=== PATIENT | female | born 1940 | race Caucasian/White ===

== ENCOUNTER 2018-10-11 22:54 | Inpatient (IN) | payer MEDICARE ==
--- NOTE | 2018-10-11 23:35 | RAD ---
Exam: Chest one view HISTORY:Pain, fall Comparison: None FINDINGS: Lungs: No masses or consolidation. Hyperinflated. Vascular calcification. Cardiac silhouette: Normal size Pulmonary vessels: Normal Pleural Spaces: Clear Pneumothorax: None Osseous abnormalities: None of acuity. IMPRESSION: COPD. No focal consolidation.
[2018-10-11 23:40] LABS: Bacteria/HPF None Seen HPF (None Seen); Bilirubin Negative (Negative); Blood, Urine Trace (Negative); Clarity Clear (Clear); Glucose, Urine (Dipstick) Normal (Negative); Leukocyte 25 Leu/uL (Negative); Nitrite Negative (Negative); Protein, Urine (Dipstick) Negative (Neg-Trace); Squamous Epithelial 0-3 HPF (0-3); Urobilinogen Normal mg/dL (Less than 2); WBC/HPF 0-3 HPF (0-3)
[2018-10-12 00:04] LABS: #Basophils 0.1 thou/uL (0.0-0.2); #Eosinphils 0.2 thou/uL (0.0-0.7); #Monocytes 1.1 thou/uL (0.11-0.59); #Neutrophils 12.2 thou/uL (1.40-6.50); %Basophils 0.4 % (0.0-1.0); %Eosinophils 1.6 % (0.0-10.0); %Lymphocytes 12.9 % (21.0-51.0); %Monocytes 7.1 % (0.0-10.0); Hemoglobin 13.9 g/dL (12.0-16.0); Mean Corpuscular HGB CONC 32.5 g/dL (32.0-36.0); Mean Corpuscular Hemoglobin 30.8 pg (27.0-31.0); Mean Corpuscular Volume 94.7 fL (78.0-98.0); Mean Platelet Volume 8.7 fL (7.4-10.4); Platelet Count 320 thou/uL (130-400); RBC Distribution Width 11.9 % (11.5-14.5); White Blood Cell (WBC) Count 15.7 thou/uL (4.8-10.8)
[2018-10-12 00:07] LABS: PTT 30.8 SEC (22.9-36.1); Prothrombin Time 13.3 SEC (12.0-14.7)
[2018-10-12 00:10] LABS: ALT (SGPT) 22 U/L (8-55); AST (SGOT) 28 U/L (5-34); Albumin 4.1 g/dL (3.4-4.8); Alkaline Phosphatase 56 U/L (40-150); Anion Gap 14 mmol/L (10-20); BUN (Urea Nitrogen) 20 mg/dL (9.8-20.1); Bilirubin, Total 0.6 mg/dL (0.2-1.2); Calc. Creatinine Clearance 0 mL/min (70-130); Calcium 9.9 mg/dL (7.8-10.44); Carbon Dioxide 28 mmol/L (23-31); Chloride 102 mmol/L (98-107); Estimated GFR-MDRD 68; Globulin 2.5 g/dL (2.4-3.5); Glucose 185 mg/dL (83-110); Potassium 4.5 mmol/L (3.5-5.1); Protein, Total 6.6 g/dL (6.0-8.3); Sodium 139 mmol/L (136-145)
[2018-10-12] MEDS ORDERED: hydrALAZINE 20 MG/ML VIAL ONE (00:18)
[2018-10-12] MEDS ORDERED: Acetaminophen 1,000 MG in Premix Bag 1 BAG IVPB SCH (01:15)
[2018-10-12] MEDS ORDERED: niCARdipine 20MG In NaCl 20 MG/200 ML BAG ONE (01:52)
[2018-10-12] MEDS ORDERED: Rocuronium Bromide 10 MG/ML (10ML VIAL) ONE ×2 (01:56→16:22)
[2018-10-12] MEDS ORDERED: Dextrose 5% in Water 1,000 ML IV PRN (01:59)
[2018-10-12] MEDS ORDERED: Ondansetron PF 4 MG/2 ML Vial IVP PRN (01:59)
[2018-10-12] MEDS ORDERED: Dextrose 50% Abboject 50 ML SYRINGE SLOW IVP PRN (01:59)
[2018-10-12] MEDS ORDERED: fentaNYL Citrate/PF 2,000 MCG in Sodium Chloride 0.9% 60 ML IV SCH (02:05)
[2018-10-12] MEDS ORDERED: Sodium Chloride 0.9% 10 ML ONE (02:07)
[2018-10-12] MEDS ORDERED: Thrombin 5000 UNITS/5 ML VIAL ONE (02:07)
[2018-10-12] MEDS ORDERED: Bacitracin Zinc Ointment 30 gm TUBE ONE (02:07)
[2018-10-12] MEDS ORDERED: Fentanyl 250 MCG/5 ML VIAL ONE (02:10)
[2018-10-12] MEDS ORDERED: Phenylephrine HCL 10 MG/ML VIAL ONE (02:10)
[2018-10-12] MEDS ORDERED: Rocuronium Bromide 50 MG/5 ML VIAL ONE (02:10)
[2018-10-12] MEDS ORDERED: Fentanyl 100 MCG/2 ML VIAL ONE (02:12)
[2018-10-12] MEDS ORDERED: Ventilator Sedation Protocol 1 EACH FS ONE (02:18)
[2018-10-12 02:25] LABS: Analyzer IN Cardio ER; Base Excess (BEa) 1.2 mEq/L (-2.0 to +3.0); Calcium, Ionized 1.15 mmol/L (1.12-1.30); Carboxyhemoglobin (COHb) 0.2 gm% (0.0-3.0); Potassium - ABG Lab 3.53 mmol/L (3.70-5.30); pH, Arterial 7.48 (7.35-7.45)
[2018-10-12] MEDS ORDERED: Fentanyl BOLUS 250 ML IVPB PRN (02:25)
[2018-10-12] MEDS ORDERED: Morphine 2 MG/ML SYRINGE SLOW IVP PRN (02:25)
[2018-10-12] MEDS ORDERED: DISCONTINUE PREVIOUS NARCOTIC PAIN MEDICATIONS AND BENZODIAZEPINES FS SCH (02:25)
[2018-10-12] MEDS ORDERED: Propofol BOLUS 1,000 MG/100 ML VIAL IV PRN (02:25)
[2018-10-12] MEDS ORDERED: Lorazepam 2 MG/ML VIAL SLOW IVP PRN (02:25)
[2018-10-12] MEDS ORDERED: Propofol 1,000 MG/100 ML VIAL IV PRN (02:25)
[2018-10-12 02:30] LABS: O2 Tension (PaO2) 565.7 mmHg (> 70.0); Puncture Site RRA
[2018-10-12 02:36] LABS: #Eosinphils 0.1 thou/uL (0.0-0.7); #Lymphocytes 1.7 thou/uL (1.20-3.40); #Monocytes 1.1 thou/uL (0.11-0.59); #Neutrophils 15.6 thou/uL (1.40-6.50); %Basophils 0.1 % (0.0-1.0); %Eosinophils 0.4 % (0.0-10.0); %Lymphocytes 9.1 % (21.0-51.0); %Neutrophils 84.4 % (42.0-75.0); Hemoglobin 13.6 g/dL (12.0-16.0); Mean Corpuscular HGB CONC 31.8 g/dL (32.0-36.0); Mean Corpuscular Volume 94.2 fL (78.0-98.0); Mean Platelet Volume 8.2 fL (7.4-10.4); Platelet Count 302 thou/uL (130-400); Red Blood Cell (RBC) Count 4.54 mill/uL (4.20-5.40); White Blood Cell (WBC) Count 18.4 thou/uL (4.8-10.8)
[2018-10-12 02:44] LABS: PTT 27.6 SEC (22.9-36.1); Prothrombin Time 13.6 SEC (12.0-14.7)
[2018-10-12 02:57] LABS: ALT (SGPT) 22 U/L (8-55); AST (SGOT) 30 U/L (5-34); Albumin 3.9 g/dL (3.4-4.8); Alkaline Phosphatase 49 U/L (40-150); Anion Gap 13 mmol/L (10-20); BUN (Urea Nitrogen) 18 mg/dL (9.8-20.1); Bilirubin, Total 0.7 mg/dL (0.2-1.2); Calc. Creatinine Clearance 0 mL/min (70-130); Calcium 8.8 mg/dL (7.8-10.44); Carbon Dioxide 24 mmol/L (23-31); Chloride 105 mmol/L (98-107); Estimated GFR-MDRD 81; Globulin 2.6 g/dL (2.4-3.5); Glucose 204 mg/dL (83-110); Magnesium 2.1 mg/dL (1.6-2.6); Phosphorus 2.4 mg/dL (2.3-4.7); Potassium 3.2 mmol/L (3.5-5.1); Protein, Total 6.5 g/dL (6.0-8.3); Sodium 139 mmol/L (136-145)
[2018-10-12 03:29] LABS: Amphetamine Not Detected (NotDetected); Barbiturates Screen Not Detected (NotDetected); Benzodiazepine Screen Not Detected (NotDetected); Cocaine Metabolite Screen Not Detected (NotDetected); Medtox Control Line Valid? VALID (VALID); Medtox Reader # READER 4; Methadone Not Detected (NotDetected); Methamphetamine Not Detected (NotDetected); Opiate Screen Not Detected (NotDetected); Oxycodone Screen Not Detected (NotDetected); Phencyclidine (PCP) Not Detected (NotDetected); THC/Cannabinoid Screen Not Detected (NotDetected); Tricyclic Screen Not Detected (NotDetected)
[2018-10-12 04:27] LABS: Actual Bicarbonate (HCO3a) 22.7 mEq/L (22-28); Base Excess (BEa) -0.5 mEq/L (-2.0 to +3.0); CO2 Tension 33.2 mmHg (35.0-45.0); Calcium, Ionized 1.09 mmol/L (1.12-1.30); Hemoglobin (Hb) 14.5 g/dL (12.0-16.0); O2 Tension (PaO2) 137.9 mmHg (> 70.0); Potassium - ABG Lab 3.58 mmol/L (3.70-5.30); pH, Arterial 7.45 (7.35-7.45)
[2018-10-12 04:30] LABS: Puncture Site ALINE
[2018-10-12 04:55] LABS: Prothrombin Time 13.3 SEC (12.0-14.7)
[2018-10-12] MEDS: Sodium Chloride 0.9% 1,000 ML IV SCH ×3 (04:59→18:17)
[2018-10-12] MEDS ORDERED: Potassium Phosphate 15 MMOL in Sodium Chloride 0.9% 250 ML 250 ML IVPB SCH (05:00)
--- NOTE | 2018-10-12 05:02 | PRG ---
DATE OF SERVICE: 10/12/2018 I agree with Susanna Thompson's evaluation on 10/12/2018. The patient is a 78-year-old woman with unknown past medical history, who had either a fall getting into the car or syncopal event according to her . He is a relatively poor historian. In any event on arrival to the hospital, she was interactive and oriented but progressively declined to the point, where she had a dense left hemiparesis and was more obtunded. CT scan initially revealed a small right frontal intracerebral hemorrhage. This has progressed to become a much more extensive right frontal intracranial hemorrhage. The patient has extensive facial ecchymoses and swelling. The patient's INR is 1.0. Platelets are normal. IMPRESSION AND PLAN: We will need to take the patient emergently to Surgery for evacuation of the right intracerebral hematoma. Job ID: [id number]
[2018-10-12 05:17] LABS: ALT (SGPT) 24 U/L (8-55); AST (SGOT) 33 U/L (5-34); Albumin 4.2 g/dL (3.4-4.8); Alkaline Phosphatase 50 U/L (40-150); Anion Gap 15 mmol/L (10-20); BUN (Urea Nitrogen) 18 mg/dL (9.8-20.1); Bilirubin, Total 1.2 mg/dL (0.2-1.2); Calc. Creatinine Clearance 72 mL/min (70-130); Calcium 9.2 mg/dL (7.8-10.44); Carbon Dioxide 23 mmol/L (23-31); Chloride 103 mmol/L (98-107); Estimated GFR-MDRD 77; Globulin 2.8 g/dL (2.4-3.5); Glucose 265 mg/dL (83-110); Potassium 3.5 mmol/L (3.5-5.1); Sodium 137 mmol/L (136-145)
--- NOTE | 2018-10-12 05:21 | OP ---
DATE OF PROCEDURE: 10/12/2018 OIL DISTRIBUTOR: Jay. PROCEDURE: Right frontal craniotomy, evacuation of hematoma. DESCRIPTION OF PROCEDURE: The patient was brought to the operating room and intubated. She was positioned supine with the head in modest extension on a gel-filled donut. An incision was made in the right frontal region and a standard curvilinear frontal incision was made in the scalp and reflected anteriorly. A standard square frontal craniotomy was performed and the dura was opened. A corticotomy was made, and we immediately entered the hematoma cavity. Throughout the case, and in the hematoma cavity, the bleeding was quite copious and watery and the clot was not very solid. This suggested an underlying coagulopathy. We evacuated extensive hematoma completely decompressing the brain. Bleeding on the brain surfaces was controlled with bipolar coagulation. No discrete site of bleeding that may have caused the hematoma was identified. Next, the skull was replaced with titanium microplates and screws and the wound was closed in anatomic layers. Job ID: [id number]
[2018-10-12] MEDS: niCARdipine 25 MG in Sodium Chloride 0.9% 250 ML 240 ML IVPB SCH ×3 (05:22→19:57)
[2018-10-12] MEDS: HumaLOG 300 UNITS/3 ML VIAL SC PRN ×2 (05:22→09:45)
--- NOTE | 2018-10-12 05:49 | CON ---
DATE OF CONSULTATION: HISTORY OF PRESENT ILLNESS: The patient is a 78-year-old female, who presented to the emergency department per EMS after syncope versus fall and acute head injury. reports that they were returning home from dinner when the patient was getting out of the car. He did not witness the event, but he heard a thud and walked around to the other side of the vehicle and found the patient unconscious on the ground. He contacted EMS, who presented on arrival and transferred the patient to [facility] ER for further evaluation. On arrival, the patient was A and O x4 and only had left upper extremity weakness. Her initial CT head showed a small right frontal intracranial hemorrhage. During her ER course, she began to decline drastically, became more obtunded and increasing weakness noticed on the left side. A repeat CT head was done, which showed a large right frontal intracranial hemorrhage with surrounding mass effect and midline shift. I was in the department, upon return of the 2nd scan, Dr. Samson and I discussed the case and felt that the patient would require emergent right-sided craniotomy for hematoma evacuation. I discussed this with the patient's spouse as well as the son over the phone. The patient was transferred to the OR for further management. PAST MEDICAL HISTORY: Hypertension, hyperlipidemia, diverticulitis, diabetes. PAST SURGICAL HISTORY: Oophorectomy, bladder suspension, hysterectomy, right knee surgery, tonsillectomy. SOCIAL HISTORY: The patient lives at home. She does not smoke, drink, or use any drugs. ALLERGIES: SHE IS ALLERGIC TO PENICILLIN. CURRENT MEDICATIONS: 1. Aspirin 81 mg tablet. 2. Metformin 500 mg tablet. 3. Losartan/hydrochlorothiazide 100 mg/25 mg tablet. 4. Duloxetine 60 mg tablet. 5. Simvastatin 20 mg tablet. 6. The patient's believes she may take Coumadin, but he is unsure of what blood thinners she is on. REVIEW OF SYSTEMS: Unobtainable secondary to the patient's condition. PHYSICAL EXAMINATION: CONSTITUTIONAL: The patient in moderate distress. GCS is still 10 on arrival. The patient opens her eyes to verbal commands. She is somewhat confused, but is able to tell me her name. She is obeying commands and squeezes my hand strongly on the right. HEAD: She has a large amount of left-sided periorbital ecchymosis and edema. EYES: Pupils are equal and reactive to light. ENT: The patient has some slurring of her speech. NECK: Nontender to palpation. Free active range of motion. RESPIRATORY: Symmetric chest expansion. Some mild sonorous breathing. CARDIOVASCULAR: Regular rate and rhythm. MUSCULOSKELETAL: She has a left-sided hemiparesis. On right, she has 5/5 strength. NEUROLOGIC: Oriented to person, not to place, time, or situation. She has notable left-sided hemiparesis and slurred speech. ASSESSMENT AND PLAN: This is a 78-year-old female with syncope versus mechanical fall with head injury, who was found to have a large right frontal intracranial hemorrhage, which required craniotomy with hematoma evacuation. We will plan to take the patient immediately to the OR for this procedure. Following this event, she will be transitioned to the ICU. We will plan to evaluate her acute head bleed further with MRI of the brain with and without gadolinium, MRA of the head, neck, and echocardiogram. We will monitor closely with q.1 neuro checks. Her systolic blood pressure should be kept between 110 and 150. No anticoagulants should be given. I have discussed this with Dr. Samson in the Trauma Service. Job ID: [id number]
[2018-10-12 05:50] LABS: Band 5 % (5-11); Hemoglobin 13.9 g/dL (12.0-16.0); Lymphocytes 12 % (21-51); MDiff Complete? YES; Mean Corpuscular HGB CONC 32.2 g/dL (32.0-36.0); Mean Corpuscular Hemoglobin 30.1 pg (27.0-31.0); Mean Corpuscular Volume 93.4 fL (78.0-98.0); Mean Platelet Volume 8.8 fL (7.4-10.4); Monocytes 3 % (0-10); Neutrophil 80 % (42-75); Platelet Count 353 thou/uL (130-400); Platelet Morphology Comment Appears Adequate; RBC Distribution Width 12.1 % (11.5-14.5); Red Blood Cell (RBC) Count 4.61 mill/uL (4.20-5.40); White Blood Cell (WBC) Count 21.6 thou/uL (4.8-10.8)
--- NOTE | 2018-10-12 07:40 | CT ---
CT OF HEAD NONCONTRAST: INDICATION: Fall, syncope. COMPARISON: No prior comparison imaging. FINDINGS: There is a prominent left frontal scalp and periorbital hematoma. A moderate-sized acute parenchymal hemorrhage with a fluid hemorrhage level is centered within the right frontal lobe. This does resul t in surrounding edema, and mild leftward subfalcine herniation, 3-4 mm at level of the septum pelluc idum. Mild global atrophy is present. There is a lacunar infarction in the left thalamus. IMPRESSION: Acute parenchymal hemorrhage of the right frontal lobe. Given the site of injury, left frontal sinus periorbital region, this does not correlate with a typical distribution of posttraumatic hemorrhage and, therefore, additional etiologies for acute hemorrhage should be excluded clinically, such as und erlying intracranial lesion with spontaneous hemorrhage, underlying vascular lesion/vasculopathy, or alternatively hemorrhage related to hypertensive encephalopathy. Hemorrhage does appear more periphe ral in location than typical for acute hemorrhage related to ruptured aneurysm. There is a mild degr ee of surrounding subarachnoid hemorrhage seen. Followup with pre- and postcontrast brain MRI upon r esolution of resolution of acute hematoma would prove useful for continued assessment. Telephone call of findings placed to the ER physician at 0010 hours, 10/12/2018. CODE CR
--- NOTE | 2018-10-12 08:04 | CT ---
CT OF FACIAL BONES NONCOTNRAST: CLINICAL HISTORY: Fall with injury, syncope. Pain. FINDINGS: Please reference the concurrently dedicated head CT for details for intracranial hemorrhage of the ri ght frontal region. There is a large left periorbital and left frontal scalp hematoma with preseptal hematoma and abnorma l soft tissue prominence/hyperdensity of the nasal soft tissues compatible with hematoma. A displace d left orbital floor fracture is present with associated inferior displacement of the left inferior r ectus muscle. No significant retrobulbar hematoma or mass effect. The [place] intraocular lenses are absent. Fracture fragmentation of the left orbital floor fracture does involve the maxillary sinus with a small, dependent hemorrhage fluid level of the left maxillary sinus. There is periosteal thic kening and mucosal thickening of the right maxillary sinus with mild fluid indicating acute on chroni c sinusitis. There is decreased pneumatization of inferior right mastoid air cells. Zygomatic arche s are intact. No acute posttraumatic dislocation of the temporomandibular joints is identified. 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 There is fo kalie hyperdensity and adjacent contusion of the omental soft tissues. IMPRESSION: 1. Left orbital floor blowout fracture with inferior displacement of the inferior rectus muscle. Co rrelate clinically to exclude evidence of entrapment. 2. Fracture involvement of left maxillary sinus with mild hemorrhagic fluid level of the left maxill carlie sinus. 3. Prominent left frontal scalp and periorbital/preseptal hematoma with extension to involve the jigar al soft tissues. A separate hematoma of the omental soft tissues is also present. POS: [facility]
--- NOTE | 2018-10-12 08:09 | CT ---
CERVICAL SPINE CT NONCONTRAST: INDICATION: Syncopal event with fall and neck injury/pain. FINDINGS: There is moderate multilevel degenerative change throughout the cervical spine. Grade I spondylolist hesis present at C3-4 and C4-5 and there is trace retrolisthesis at C5-6 and C6-7. Multilevel degene rative disk space narrowing, end plate irregularity, an d marginal osteophyte formation present. The re is no craniocervical distraction injury. Multilevel bilateral moderate facet osteoarthritis is pr esent throughout the cervical spine. No acute fracture visualized. IMPRESSION: Multilevel degenerative change of the cervical spine including multilevel mild listhesis favoring deg enerative processes. No discrete evidence of an acute cervical spine fracture. POS: [facility]
--- NOTE | 2018-10-12 09:14 | CT ---
CT OF HEAD NONCONTRAST: INDICATION: Intracranial hemorrhage, followup, altered mental status. FINDINGS: There has been increased volume of acute parenchymal hemorrhage centered within the right frontal lob e, now measuring approximately 7.8 cm in AP dimension x 4.8 cm in transverse dimension. This is comp ared to 5.4 cm AP x 3.5 cm AP on the preceding exam. Progressive mass effect and midline shift has d eveloped as a result, with leftward subfalcine herniation now measuring 6 mm at the level of the sept um pellucidum. There is leftward displacement, and effacement of the ventricular system. Redemonstr ation of associated interspersed subarachnoid hemorrhage of the right cerebral sulci. Prominent left frontal scalp and left periorbital soft tissue hematoma is again noted as well as left orbital/maxi llary sinus fracture deformity. IMPRESSION: Interval increase in volume of large, acute parenchymal hemorrhage of the right frontal lobe with ass ociated increasing mass effect and midline shift. Notification of report made at 0142 hours, 10/12/2018. CODE CR POS: [facility]
--- NOTE | 2018-10-12 09:15 | HP ---
HISTORY OF PRESENT ILLNESS: The patient is a 78-year-old female. The patient's history from the patient's . The patient's did not know why and how she was fallen on face down while she was walking, loss of consciousness for about 15 minutes. She was brought here by EMS. Upon arrival, the patient's GCS was 14, contusion of her left eye and weakness of left side. CT scan showed bleeding of the right frontal lobe. While remaining in the ER, the patient neuro deficit was getting worse. Upon arrival , her muscle strength of left side was decreased but she was able to move her toe and her ankle. When I was examining her left hand and left leg, totally loss of sensation and muscle strength. Her GCS remained intact, 14. Repeat CT scan, active bleeding, consulted with Neurosurgeon and decided intubation and taking her to the OR. REVIEW OF SYSTEMS: Limited review of systems noncontributory due to the urgent nature of her condition. PAST MEDICAL HISTORY: Diabetes, diverticulosis, diverticulitis perforation in 11/2017, bladder suspension, hysterectomy, oophorectomy, right knee replacement, hypertension. She reports she is using warfarin, but INR upon arrival is 1 PHYSICAL EXAMINATION: GENERAL: The patient appeared in acute distress, but with contusion of left eye and jaw. The patient is on neck collar. VITAL SIGNS: Heart rate is 83, blood pressure 180/80, respiratory rate 16, O2 saturation 98% on O2 4 L. LUNGS: Clear. HEART: Regular rate and rhythm. ABDOMEN: Soft. EXTREMITIES: Right side, she follows command, muscle strength is 4/5. Left side, total strength is 0/5 due to loss of sensation. DIAGNOSES: 1. Massive right cerebral hemorrhage, active bleeding, traumatic. 2. History of diabetes. 3. Hypertension. 4. Diverticulitis. 5. Bladder suspension. 6. Hysterectomy. 7. Oophorectomy. 8. Right knee replacement. PLAN: The patient will be blood pressure controlled with hydralazine and nicardipine drip to keep blood pressure less than 140 systolic. Oxygen to keep O2 saturation more than 95%, intubation, and she will be brought to OR emergently. Job ID: [id number] MTDD
--- NOTE | 2018-10-12 09:20 | RAD ---
CHEST 1 VIEW: INDICATION: Intubation. COMPARISON: Prior exam dated 10/11/2018. FINDINGS/IMPRESSION: The patient has been intervally intubated with the ET tube tip at the thoracic inlet. Gastric cathet er projects below the level of the left hemidiaphragm and beyond the field of view. Chronic lung kay nges are stable. POS: [facility]
--- NOTE | 2018-10-12 09:23 | RAD ---
Exam: Chest one view HISTORY:Altered mental status, intracranial hemorrhage Comparison: Earlier same date FINDINGS: Lungs: Patchy left basilar opacity with obscuration of lateral left costophrenic sulcus Cardiac silhouette:Stable Pulmonary vessels: Normal Pleural Spaces: Clear Pneumothorax: None Support tubes are stable appearing. Osseous abnormalities: None of acuity. IMPRESSION: Mild patchy left basilar opacity which may represent volume loss.
[2018-10-12] MEDS: Polyethylene Glycol 3350 17 GM Packet PO SCH (09:40)
[2018-10-12] MEDS: Famotidine/PF 20 mg/2ml Vial SLOW IVP SCH ×2 (09:40→19:54)
[2018-10-12] MEDS: Senokot S 8.6-50 MG TAB PO SCH ×2 (09:40→19:54)
--- NOTE | 2018-10-12 09:43 | PRG ---
DATE OF SERVICE: 10/12/2018 The patient is postoperative day #1, status post right-sided craniotomy for hematoma evacuation. She has been transitioned to the ICU. No overnight events. She is requiring Cardene for her blood pressure control. On exam this morning, the patient awakens easily to voice and tense to open her right eye. She is following commands on the right side and squeezes my hand and moves her right foot. Left-sided hemiparesis is noted. We will plan to evaluate her acute intracranial hemorrhage further with MRI of the brain with and without contrast, MRI of the head and neck as well as transesophageal echocardiogram. We will follow these results closely. We appreciate the assistance of the Trauma Team management for this patient. Job ID: [id number]
--- NOTE | 2018-10-12 12:05 | MRI ---
MR ANGIOGRAM OF THE HEAD: DATE: 10/12/2018 COMPARISON: None. HISTORY: Intracranial hemorrhage. TECHNIQUE: Routine noncontrast enhanced [id number] MR angiography of the brain is obtained. Image s are from the skull base through the axial level of the lateral ventricles. The intracranial hemorrhage in the right frontal region seen on recent CT examination is not fully imaged on this exam ination. FINDINGS: Motion artifact limits detailed assessment of the arterial structures. Visualized portions of bilater al vertebral arteries appear patent. Basilar artery is patent. Bilateral posterior cerebral arteries appear patent with no saccular aneurysm, high-grade stenosis, or vascular occlusion apprecia florencio within the posterior circulation. The imaged extracranial ICA appears grossly unremarkable bilaterally. Motion limits assessment of the cavernous carotid arteries. The M1 segment appears patent bilaterally. Distal M1 segment, MCA bifurcation, and proximal M2 branches are not well assessed on the left secondary to motion. Right M1 segment, MCA bifurcation, and distal MCA branches appear grossly unremarkable. The A1 segmen t on the right is hypoplastic and/or aplastic. Distal CHAZ branches appear grossly unremarkable. No saccular aneurysm, high-grade stenosis, or vascular occlusion is seen involving the anterior circulat ion. IMPRESSION: Limited grossly unremarkable MR angiogram of the head. Of note, this examination does not extend thro ugh the vertex and thus does not fully assess the region of right-sided intracranial hemorrhage. A follow-up CT angiogram may be beneficial. Transcribed Date/Time: 10/12/2018 12:18 PM
--- NOTE | 2018-10-12 12:15 | PRG ---
DATE OF SERVICE: 10/12/2018 SUBJECTIVE: Ms. Denise is a 78-year-old woman, who suffered severe acute intracranial hemorrhage yesterday. She was brought to the emergency department and evaluated after a ground level fall. The patient was found with moderate-sized acute right frontal parenchymal hemorrhage. Initial [place] Coma Scale was reported at 14. Shortly after that, the patient developed left hemiparesis, which necessitated repeat CT scan of the brain, which then showed a large right frontal temporal intracranial hemorrhages. The patient underwent an emergent craniectomy and evacuation of hematoma. Currently, she is sedated on mechanical ventilator support. Blood pressure is being controlled using nicardipine by continuous infusion. Remains with left hemiparesis. She is able to withdraw her right lower extremity to painful stimulus. OBJECTIVE: VITAL SIGNS: This morning include blood pressure 141/60, pulse 75, respiratory rate is 13, temperature 97.5 degrees Fahrenheit, and oxygen saturation 100% on FiO2 of 40%. HEENT: Pupils are equal and reactive to light at 3 mm. NECK: She has no jugular venous distention noted. HEART: Reveals regular rate and rhythm. No murmurs or gallops auscultated. LUNGS: Clear to auscultation bilaterally. Her breathing is regular and nonlabored. ABDOMEN: Soft, nontender, and nondistended. EXTREMITIES: Reveal 2+ radial and pedal pulses bilaterally. No ankle edema is present. LABORATORY FINDINGS: Include CBC with 21,600 white blood cells, hemoglobin and hematocrit 13.9 and 43.1 respectively. Platelet count is 353,000. Metabolic profile; sodium 137, potassium 3.5, chloride is 103, bicarb is 23, BUN 18, creatinine 0.73, glucose 265. IMPRESSION: 1. Acute right-sided hemorrhagic cerebrovascular accident with left hemiparesis, status post craniectomy and evacuation. 2. Multiple facial fractures including left orbital blowout and left maxillary sinus fractures. 3. Acute hypokalemia. 4. Acute hyperglycemia. 5. Acute posttraumatic respiratory failure. PLAN: 1. Continue with full mechanical ventilator support until the patient is neurologically stable. 2. Correct abnormal electrolytes. 3. The patient is being seen by Oral Maxillofacial Surgery with regard to the multiple facial fractures, however, no operative interventions will be entertained until the patient is neurologically stable. 4. Continue to control high blood pressure using nicardipine. 5. Above findings and plan will be discussed with the patient's family upon arrival. Total critical care time is 45 minutes. Job ID: [id number]
--- NOTE | 2018-10-12 12:24 | MRI ---
MRI Brain W WO Con: 10/12/2018 3:49 AM CLINICAL HISTORY: Intracranial hemorrhage. COMPARISON: Recent head CTs from October 11 and October 12 are referenced FINDINGS: Extra axial spaces: Extra-axial hemorrhage is present involving the subarachnoid space of the right c erebral hemisphere as well as within the subdural space overlying the right convexity and along the interhemispheric falx. Acute infarction: Circumferential ischemia about the large parenchymal hemorrhage of the right cerebr al hemisphere is present. Ventricular system: There is effacement and leftward displacement of the ventricular system. Mild int raventricular hemorrhagic susceptibility. Basal cisterns: Patent. Cerebral parenchyma: There is a large parenchymal hemorrhage occupying the right frontal and parietal lobes with associated vasogenic edema and mass effect. There is an approximate 9 cm AP dimension of the hemorrhage in the transverse diameter of approximately 4 cm, which excludes the surrounding va sogenic edema. Midline shift: Leftward subfalcine herniation, at level of septum pellucidum measures 7 mm. Cerebellum: No acute abnormality Brainstem: Normal. Craniotomy of the right calvarium is present. Paranasal sinuses:Scattered paranasal sinus mucosal thickening and fluid present Intraaxial Enhancement: Limited evaluation of postcontrast imaging due to significant patient motion. There is multifocal reticulonodular pattern of enhancement throughout the site of hemorrhagic abnormality of the right frontoparietal lobe IMPRESSION: 1. Large right frontoparietal parenchymal hemorrhage with associated vasogenic edema, mass effect, m idline shift and perilesional ischemia. 2. Scattered extra-axial hemorrhage as well as mild intraventricular hemorrhage. 3. Abnormal reticulonodular enhancement at the site of hemorrhage is present, multifocal, and nonspe cific. Continued imaging follow-up is recommended. Transcribed Date/Time: 10/12/2018 1:32 PM
--- NOTE | 2018-10-12 14:43 | MRI ---
MR ANGIOGRAPHY NECK: TECHNIQUE: MR angiography performed with and without contrast. FINDINGS: The common carotid arteries and internal carotid arteries appear unremarkable bilaterally. No eviden ce of stenosis or signal loss identified. The vertebral arteries are patent and appear symmetric. IMPRESSION: Unremarkable magnetic resonance angiography of the neck. POS: [facility]
--- NOTE | 2018-10-12 14:58 | PRG ---
DATE OF SERVICE: 10/12/2018 Mrs. Denise remains intubated. With some prompting, she will open her right eye and track the examiner. She follows commands with her right hand briskly. She seems to continue to have a dense left hemiparesis. IMPRESSION AND PLAN: The patient is making reasonable recovery following craniotomy for fairly extensive right hemispheric contusional and hemorrhagic injury. Presumably, this is all related to trauma, particularly given the traumatic injury to the face and that the brain hemorrhage was exacerbated by a coagulopathy. At some point, we will get an MRI of the brain to rule out underlying lesion as well as imaging of the cerebral and cervical vasculature, but this is on hold for now given the potential metallic implant in the knee. No family is available at the bedside for discussion at this time. Job ID: [id number]
[2018-10-12] MEDS: Acetaminophen 1,000 MG in Premix Bag 1 BAG IVPB SCH ×2 (15:20→19:53)
[2018-10-12] MEDS ORDERED: PHENYLEPHRINE-NS 100 MCG/ML 10 ML SYRINGE ONE (16:22)
[2018-10-12] MEDS ORDERED: ePHEDrine 50 MG/ML VIAL ONE (16:22)
[2018-10-12] MEDS ORDERED: PROPOFOL 200 MG/20 ML VIAL ONE (16:22)
[2018-10-12] MEDS ORDERED: Esmolol 100 MG/10 ML VIAL ONE (16:22)
[2018-10-12] MEDS: Simvastatin 20 MG TAB PO SCH (19:54)
[2018-10-13] MEDS: Acetaminophen 1,000 MG in Premix Bag 1 BAG IVPB SCH ×3 (01:03→15:03)
[2018-10-13] MEDS: Sodium Chloride 0.9% 1,000 ML IV SCH ×3 (02:42→15:03)
[2018-10-13 04:29] LABS: Anion Gap 9 mmol/L (10-20); BUN (Urea Nitrogen) 11 mg/dL (9.8-20.1); Calc. Creatinine Clearance 89 mL/min (70-130); Calcium 8.9 mg/dL (7.8-10.44); Carbon Dioxide 24 mmol/L (23-31); Chloride 109 mmol/L (98-107); Estimated GFR-MDRD Greater than 90; Glucose 203 mg/dL (83-110); Magnesium 1.8 mg/dL (1.6-2.6); Potassium 3.2 mmol/L (3.5-5.1); Sodium 139 mmol/L (136-145)
[2018-10-13] MEDS: HumaLOG 300 UNITS/3 ML VIAL SC PRN ×4 (04:31→20:37)
[2018-10-13] MEDS: niCARdipine 25 MG in Sodium Chloride 0.9% 250 ML 240 ML IVPB SCH (04:32)
--- NOTE | 2018-10-13 07:26 | PRG ---
DATE OF SERVICE: SUBJECTIVE: Patient now is postoperative day #2, status post right-sided craniotomy for evacuation of hematoma. Patient has significant right frontal contusional injury following syncope versus fall. After reviewing additional imaging with MRI and MRA, we believe this is likely a traumatic event. She had no overnight events during her stay in the CCU. OBJECTIVE: On exam this morning, patient attempts to open her right eye, but she has significant facial swelling and is unable to open. Her pupils remain equal and reactive. She is following commands with the right upper and right lower extremity. She has a dense left hemiparesis. Her incisions remained dry and intact. Patient's neurologic exam remains stable. We will change her neuro checks to q.2. Continue to follow closely. Job ID: [id number]
[2018-10-13] MEDS ORDERED: Magnesium 2 GM/50 ML 2 GM in Premix Bag 1 BAG IVPB SCH (07:30)
[2018-10-13] MEDS ORDERED: Potassium Phosphate 30 MMOL in Sodium Chloride 0.9% 250 ML 250 ML IVPB SCH (08:00)
[2018-10-13] MEDS: Senokot S 8.6-50 MG TAB PO SCH ×2 (08:21→20:37)
[2018-10-13] MEDS: Famotidine/PF 20 mg/2ml Vial SLOW IVP SCH ×2 (08:21→20:37)
[2018-10-13] MEDS: Polyethylene Glycol 3350 17 GM Packet PO SCH (08:21)
[2018-10-13] MEDS: Calcium Carbonate + Vit D 250 MG TAB PO SCH (08:22)
[2018-10-13] MEDS: Losartan 25 MG TAB PO SCH (10:29)
--- NOTE | 2018-10-13 13:05 | PRG ---
DATE OF SERVICE: 10/13/2018 SUBJECTIVE: Ms. Denise is a 78-year-old woman, who is post injury day #2, status post ground level fall. The patient sustained multiple facial fractures as well as acute severe large intracranial hemorrhage. She is postop day #2, status post right craniectomy with evacuation of right-sided hematoma. She remains on mechanical ventilator support. This morning, although she is not able to open her eyes, she does follow commands by squeezing my hands and also by wiggling her toes. [place] Coma Scale remains at E1 M6 V1T. She is on no vasopressor or inotropic support. Blood pressure is being controlled using Cardene intravenously. Urinary output has been adequate. The patient is tolerating ventilatory wean and now on CPAP. OBJECTIVE: VITAL SIGNS: This morning include blood pressure 140/59, pulse 76, respiratory rate is 16, temperature is 99.6 degrees Fahrenheit, which is the maximum temperature in last 24 hours. Oxygen saturation is 98% on FiO2 of 30% on mechanical ventilator support. HEENT: There remains residual left periorbital edema. Midface otherwise is stable. There is no CSF, otorrhea, or rhinorrhea. NECK: She has no jugular venous distention noted. HEART: Reveals regular rate and rhythm. No murmurs or gallops auscultated. LUNGS: Clear to auscultation bilaterally. Breathing regular and nonlabored. ABDOMEN: Soft, nontender, and nondistended. EXTREMITIES: Reveal 2+ radial and pedal pulses bilaterally. She has left-sided weakness, which is improved compared to preoperatively. LABORATORY FINDINGS: Today includes metabolic profile; sodium 139, potassium 3.2, chloride is 109, bicarb is 24, BUN is 11, creatinine 0.59, glucose is 203, magnesium 1.8, phosphorus 2.0. IMPRESSION: 1. Postop day #2, status post right craniectomy with evacuation of large right-sided intracranial hemorrhage. 2. Acute posttraumatic respiratory failure, improving. 3. Acute hypokalemia. 4. Acute hypophosphatemia. 5. Acute hypomagnesemia. PLAN: 1. Correct abnormal electrolytes. 2. Increase activity per Physical and Occupational Therapy. 3. We will discuss with the patient's family today with regard to percutaneous tracheostomy and gastrostomy tube placements in anticipation of transfer of the patient to inpatient rehabilitation post discharge. 4. In the interim, we will initiate enteral nutritional supplementation. Total critical care time is 40 minutes. Job ID: [id number]
--- NOTE | 2018-10-13 16:11 | PQF ---
CLINICAL DOCUMENTATION IMPROVEMENT CLARIFICATION FORM: ICD-10 Updated PLEASE DO AN ADDENDUM TO THE PROGRESS NOTE WITH ANY DOCUMENTATION UPDATES OR ADDITIONS AND CARRY THROUGH TO DC SUMMARY. THANK YOU. DATE: 10/13/18 ATTN: Kip KERNS PA-C Please exercise your independent, professional judgment in responding to the clarification form. Clinical indicators are provided on the bottom of this form for your review Please check appropriate box(s): [ x] Cerebral edema / Vasogenic edema [ ] Compression of brain Due to: [x ] Intracranial hematoma [ ] Acute cerebral infarction [ x ] Traumatic brain injury [ ] Other diagnosis [ ] Unable to determine In addition, please specify: Present on Admission (POA): [x ] Yes [ ] No [ ] Unable to determine For continuity of documentation, please document condition throughout progress notes and discharge summary. Thank You. CLINICAL INDICATORS - SIGNS / SYMPTOMS / LABS CONSULTATION REPORT 10/12: "A REPEAT CT HEAD WAS DONE, WHICH SHOWED A LARGE RIGHT FRONTAL INTRACRANIAL HEMORRHAGE WITH SURROUNDING MASS EFFECT AND MIDLINE SHIFT." RISKS: RIGHT FRONTAL INTRACRANIAL HEMORRHAGE TREATMENT: NEUROSURGERY CONSULT CRANIOTOMY WITH HEMATOMA EVACUATION (This form is maintained as a part of the permanent medical record) 2014 [employer]. All Rights Reserved KELL [email or web address] Office: [phone] [facility]
[2018-10-13] MEDS ORDERED: Lidocaine 1% w/Epinephrine 1:100K 20 ML VIAL FS SCH (16:15)
[2018-10-13] MEDS ORDERED: Fentanyl 100 MCG/2 ML VIAL SLOW IVP SCH (16:15)
[2018-10-13] MEDS ORDERED: Midazolam HCl 2 mg/2 ml Vial SLOW IVP SCH (16:15)
[2018-10-13] MEDS ORDERED: Vecuronium 10 MG VIAL IVP SCH (16:15)
[2018-10-13] MEDS: cefTRIAXone\\ROCEPHIN 2 GM in Sodium Chloride 0.9% 100 ML IVPB SCH (17:57)
[2018-10-13] MEDS ORDERED: Tetracaine HCl 0.5% Ophth Soln 15 ML Bottle OP SCH (20:00)
--- NOTE | 2018-10-13 20:34 | PRG ---
DATE OF SERVICE: 10/13/2018 SUBJECTIVE: Ms. Denise is resting comfortably. She continues to follow commands with some encouragement. She has not eye opening as she had been previously. I discussed her case with Dr. Morgan, who was planning bedside trach and PEG tomorrow, which seems reasonable. I will arrange 4-week followup with head CT and following the trach and PEG, I believe we can focus on dressing. Whatever needs to be done on orbital fracture and then focus on rehab planning. No family was available for discussion at this time. Job ID: [id number]
[2018-10-13] MEDS: Simvastatin 20 MG TAB PO SCH (20:37)
[2018-10-14] MEDS: Sodium Chloride 0.9% 1,000 ML IV SCH ×3 (03:50→23:18)
[2018-10-14] MEDS: niCARdipine 25 MG in Sodium Chloride 0.9% 250 ML 240 ML IVPB SCH ×2 (04:46→18:55)
[2018-10-14] MEDS: HumaLOG 300 UNITS/3 ML VIAL SC PRN ×5 (04:47→20:57)
[2018-10-14] MEDS ORDERED: Lidocaine 1% w/Epinephrine 1:100K 20 ML VIAL FS SCH (05:30)
[2018-10-14] MEDS ORDERED: Vecuronium 10 MG VIAL IVP SCH (05:30)
[2018-10-14 05:37] LABS: Band 7 % (5-11); Hemoglobin 10.9 g/dL (12.0-16.0); Lymphocytes 9 % (21-51); MDiff Complete? YES; Mean Corpuscular HGB CONC 30.9 g/dL (32.0-36.0); Mean Corpuscular Hemoglobin 29.3 pg (27.0-31.0); Mean Corpuscular Volume 94.9 fL (78.0-98.0); Mean Platelet Volume 8.9 fL (7.4-10.4); Monocytes 8 % (0-10); Neutrophil 76 % (42-75); Platelet Count 287 thou/uL (130-400); Platelet Morphology Comment Appears Adequate; RBC Distribution Width 12.3 % (11.5-14.5); Red Blood Cell (RBC) Count 3.73 mill/uL (4.20-5.40); White Blood Cell (WBC) Count 17.4 thou/uL (4.8-10.8)
[2018-10-14 05:45] LABS: Anion Gap 10 mmol/L (10-20); BUN (Urea Nitrogen) 12 mg/dL (9.8-20.1); Calc. Creatinine Clearance 92 mL/min (70-130); Calcium 8.9 mg/dL (7.8-10.44); Carbon Dioxide 22 mmol/L (23-31); Chloride 111 mmol/L (98-107); Estimated GFR-MDRD Greater than 90; Glucose 233 mg/dL (83-110); Magnesium 1.9 mg/dL (1.6-2.6); Phosphorus 1.2 mg/dL (2.3-4.7); Potassium 3.4 mmol/L (3.5-5.1); Sodium 140 mmol/L (136-145)
[2018-10-14] MEDS ORDERED: Potassium Phosphate 30 MMOL in Sodium Chloride 0.9% 250 ML 250 ML IVPB SCH (07:00)
[2018-10-14] MEDS ORDERED: Magnesium Sulfate 4 GM in Sodium Chloride 0.9% 250 ML 250 ML IVPB SCH (07:00)
[2018-10-14] MEDS ORDERED: Potassium Phosphate 30 MMOL in Sodium Chloride 0.9% 500 ML IVPB SCH (07:00)
--- NOTE | 2018-10-14 07:02 | PRG ---
DATE OF SERVICE: 10/14/2018 SUBJECTIVE: The patient had no overnight events. She is on postoperative day #3, status post right-sided craniotomy for hematoma evacuation. There are plans for trach and PEG later today. OBJECTIVE: On exam this morning, she has not opened her eyes, but she is purposeful with the right upper extremity. She follows commands and squeezes my hand. She is also moving the left lower extremity. She continues to have a left-sided dense hemiparesis. Pupils are equal and reactive. Her incision is dry and intact. We agree with plan for trach and PEG today. When we assess, can also plan to treat her facial fractures at any point in time. We will continue to follow closely at this time. No additional acute neurosurgical intervention is anticipated. We will arrange for a followup with a noncontrast head CT. We will continue to follow along. Job ID: [id number]
--- NOTE | 2018-10-14 08:15 | RAD ---
SINGLE VIEW CHEST: Date: 10/14/18 COMPARISON: 10/12/18. HISTORY: Aspiration pneumonia. FINDINGS: Single view of the chest shows normal sized cardiomediastinal silhouette. The endotracheal tube and N G tube are unchanged in position. There is no evidence of consolidation, mass, or pleural effusion. IMPRESSION: Stable exam. POS: [facility]
[2018-10-14] MEDS: Calcium Carbonate + Vit D 250 MG TAB PO SCH ×2 (08:32→09:11)
[2018-10-14] MEDS: Famotidine/PF 20 mg/2ml Vial SLOW IVP SCH ×2 (08:32→20:40)
[2018-10-14] MEDS: Losartan 25 MG TAB PO SCH ×3 (08:32→20:41)
[2018-10-14] MEDS: Senokot S 8.6-50 MG TAB PO SCH ×3 (08:32→20:40)
[2018-10-14] MEDS: Polyethylene Glycol 3350 17 GM Packet PO SCH ×2 (08:32→09:11)
[2018-10-14] MEDS ORDERED: Insulin Glargine 10 UNITS in Pre-Filled Syringe 1 EACH SC SCH (09:00)
[2018-10-14] MEDS: Amlodipine 5 MG TAB PO SCH ×2 (09:30→20:40)
[2018-10-14] MEDS ORDERED: Sterile Water 10 ML ONE (11:41)
[2018-10-14] MEDS: Fentanyl 100 MCG/2 ML VIAL SLOW IVP SCH ×4 (11:51→12:44)
[2018-10-14] MEDS: Midazolam HCl 2 mg/2 ml Vial SLOW IVP SCH ×2 (11:51→12:00)
[2018-10-14] MEDS ORDERED: PROPOFOL 20 ML ONE (11:56)
[2018-10-14] MEDS ORDERED: Midazolam HCl 2 mg/2 ml Vial ONE (11:58)
--- NOTE | 2018-10-14 14:26 | PRG ---
DATE OF SERVICE: 10/14/2018 SUBJECTIVE: Ms. Denise is a 78-year-old woman, post injury day #3, status post ground level fall, where she sustained acute severe traumatic brain injury with large right frontotemporal intracerebral hemorrhage, requiring craniectomy and evacuation. The patient remains on mechanical ventilator support. This morning, although she is unable to open her eyes, she moves right upper and lower extremities to command. She remains with significant left hemiparesis. She is on no vasopressor or inotropic support. She was transiently on a nicardipine for continuous infusion yesterday to manage blood pressure. OBJECTIVE: VITAL SIGNS: This morning, her vital signs noted with blood pressure of 139/49, pulse is 79, respiratory rate is 25, temperature 100 degrees Fahrenheit, which is maximum temperature in the last 24 hours. Oxygen saturation 96% on FiO2 of 30%. HEENT: Both pupils are equal, round, reactive to light bilaterally. She has decrease in facial swelling. NECK: There is no jugular venous distention noted. HEART: Reveals regular rate and rhythm. No murmurs, gallops auscultated. LUNGS: Clear to auscultation bilaterally. Her breathing is regular and nonlabored. ABDOMEN: Soft, nontender, and nondistended. EXTREMITIES: Reveal 2+ radial and pedal pulses bilaterally. No ankle edema is present. MUSCULOSKELETAL: Examination reveals 4/5 muscle strength in the right upper and lower extremities present. Left upper extremity is 1/5 and left lower extremities 2/5. She has no ankle edema present. LABORATORY FINDINGS: Today includes a CBC with 17,400 white blood cells, hemoglobin and hematocrit 10.9 and 35.4, respectively. Platelet count is 287,000. Metabolic profile; sodium 140, potassium 3.4, chloride is 111, bicarb is 22, BUN 12, creatinine 0.57, glucose is 233, magnesium 1.9, and phosphorus is 1.2. IMPRESSIONS: 1. Post injury day #3, status post ground level fall. 2. Acute severe traumatic brain injury with right frontotemporal intracerebral hemorrhage, status post craniectomy and evacuation. 3. Acute posttraumatic respiratory failure, improving. 4. Acute hypophosphatemia. 5. Acute hypokalemia. 6. Acute hypomagnesemia. 7. Acute aspiration pneumonia. Note that, the respiratory culture from yesterday reveals many gram-negative rods, many gram-negative diplococci, moderate gram-positive cocci in pairs and clusters, and moderate gram-variable rods. The patient is currently on levofloxacin and ceftriaxone intravenously. PLAN: 1. Correct abnormal electrolytes. 2. Continue with antibiotic therapy until final sensitivity study has been returned. 3. Continue with mechanical ventilator support. The patient underwent tracheostomy tube today and we will begin ventilatory wean once the patient emerges from the postprocedure sedation. 4. Increase activity per Physical and Occupational Therapy. 5. Ask PM and R to evaluate the patient for possible inpatient rehabilitation post discharge. Above findings and plan discussed with the patient's and son at bedside. They both indicated understanding information given. I have answered their questions. Critical care time is including the time spent with family conference is 40 minutes. Job ID: [id number]
--- NOTE | 2018-10-14 15:29 | OP ---
DATE OF PROCEDURE: 10/14/2018 PREOPERATIVE DIAGNOSES: 1. Status post ground level fall. 2. Severe right-sided intracranial hemorrhage status post craniectomy and evacuation of hematoma. 3. Acute posttraumatic respiratory failure. POSTOPERATIVE DIAGNOSES: 1. Status post ground level fall. 2. Severe right-sided intracranial hemorrhage status post craniectomy and evacuation of hematoma. 3. Acute posttraumatic respiratory failure. PROCEDURES PERFORMED: 1. Percutaneous endoscopic gastrostomy tube placement. 2. Percutaneous tracheostomy tube placement. ANESTHESIA: Deep sedation and local. INDICATIONS FOR PROCEDURE: A 78-year-old woman, who was admitted on 10/11/2018 following a ground level fall with acute severe right-sided traumatic brain injury with large intracerebral hemorrhage. The patient is 3 days status post craniectomy and evacuation of the said hematoma. She currently remains on mechanical ventilator support with a [place] Coma Scale of E1, M6 V1t. Decision was made to perform a percutaneous tracheostomy tube to liberate the patient from mechanical ventilator support and in addition, percutaneous endoscopic gastrostomy tube is warranted for potential prolonged enteral nutritional supplementation. DESCRIPTION OF PROCEDURE: Informed consent was obtained from the patient's son, power of claim attorney. The patient was placed in supine position. She was on full mechanical ventilator support with FiO2 set at 100%. She was given midazolam and fentanyl in aliquots to achieve deep sedation and comfort. A mouth guard was put in place. Endoscope was introduced orally and carefully advanced through the esophagus into the stomach, which was insufflated. The scope was then advanced into proximal duodenum. No ulcerative disease was noted. The scope was withdrawn into the gastric lumen. Retroflexed to visualize the cardia and fundus. No ulcerations present. The left upper quadrant was transilluminated in area chosen for placement of the gastrostomy tube. Here, the abdomen was sterilely prepped and draped in usual fashion. The skin was anesthetized with 1% lidocaine. A stab incision was made using 11 scalpel. Introducer needle was inserted through the incision and advanced into the gastric lumen under direct vision by endoscopy. Guidewire was passed through the needle and advanced into the gastric lumen. Then, captured with an Endo Snare. The endoscope and snared guidewire pulled out orally as a unit. The guidewire was then connected to a 20-Dutch gastrostomy tube. Distal end of the guidewire was pulled through the incision leaving the mushroom end of the gastrostomy tube abutting the gastric wall mucosa. The gastrostomy was fashioned to length and secured to anterior abdominal wall using a bolster at 3 cm. Endoscope was then reintroduced orally and advanced into the gastric lumen visualizing the proper sitting of the gastrostomy tube. No active bleeding present. The stomach was desufflated. Endoscope was withdrawn visualizing intact esophageal mucosa. The patient tolerated this procedure without any apparent complications. Sterile dressings applied at this site. Attention was then directed to the anterior neck, where we will proceed with placement of the percutaneous tracheostomy tube. With a different set of sterile gown and gloves, we proceeded with the tracheostomy aspect of the procedure. The bronchoscope was introduced through the previous endotracheal tube and advanced to visualize the nima. The scope was then withdrawn with the endoscope as a unit, transilluminating the anterior neck in the area chosen for the placement of the tracheostomy tube. The tip of the endotracheal tube was seated at 5 cm above the nima. The skin 2 fingerbreadths above the suprasternal notch was anesthetized with 1% lidocaine with epinephrine. A 1 cm vertical incision was made here using a 15 scalpel. An introducer needle was inserted through the incision and advanced through the anterior tracheal wall, visualized by bronchoscopy. Guidewire was passed through the needle and advanced into the distal tracheal lumen. The needle was withdrawn over the guidewire. Anterior tracheal wall was sterilely dilated over the guidewire. Finally, a size 8 tracheostomy tube with an introducer stylet and dilator were passed as a unit over the guidewire and advanced into the distal tracheal lumen. The introducer stylet with a guidewire and dilator were removed as a unit leaving the tracheostomy tube in place. An inner cannula was inserted. The patient was connected to mechanical ventilator support via the newly placed tracheostomy tube. One cuff was inflated, good tidal volume was returned. The tracheostomy tube was secured to anterior neck using 0 silk suture at two points. Trach dressings and tie were applied. Bronchoscope was then withdrawn with the previous endotracheal tube as a unit, visualizing the tracheostomy site from above with good hemostasis. Once the endotracheal tube was removed, bronchoscope was reintroduced through the newly placed tracheostomy tube and advanced to visualize nima. Scope was advanced first to the left upper lobe and then left lower lobe, where multiple mucus plugs were evacuated after it was irrigated. The scope was then advanced to the right upper lobe, bronchus intermedius and then, finally right lower lobe. Minor secretions here were evacuated. Following completion of pulmonary toilet, bronchoscope was withdrawn visualizing the tracheostomy site from below. No active bleeding noted. The patient tolerated this procedure without any apparent complication and remains hemodynamically stable following completion of the procedure. Job ID: [id number]
[2018-10-14] MEDS: cefTRIAXone\\ROCEPHIN 2 GM in Sodium Chloride 0.9% 100 ML IVPB SCH (17:36)
[2018-10-14] MEDS: Chlorhexidine Gluconate 15 ML UDCUP SSP SCH (19:10)
[2018-10-14] MEDS: Simvastatin 20 MG TAB PO SCH (20:40)
[2018-10-15 05:21] LABS: Anion Gap 11 mmol/L (10-20); BUN (Urea Nitrogen) 12 mg/dL (9.8-20.1); Calc. Creatinine Clearance 103 mL/min (70-130); Calcium 8.4 mg/dL (7.8-10.44); Carbon Dioxide 23 mmol/L (23-31); Chloride 113 mmol/L (98-107); Estimated GFR-MDRD Greater than 90; Glucose 175 mg/dL (83-110); Magnesium 2.3 mg/dL (1.6-2.6); Potassium 3.6 mmol/L (3.5-5.1); Sodium 143 mmol/L (136-145)
[2018-10-15] MEDS: HumaLOG 300 UNITS/3 ML VIAL SC PRN ×3 (05:38→17:04)
[2018-10-15 05:40] LABS: Hemoglobin 10.6 g/dL (12.0-16.0); Hypochromia SLIGHT = 6-15 cells (100X) (0-5/hpf); Lymphocytes 19 % (21-51); MDiff Complete? YES; Mean Corpuscular HGB CONC 32.1 g/dL (32.0-36.0); Mean Corpuscular Hemoglobin 30.5 pg (27.0-31.0); Mean Corpuscular Volume 94.9 fL (78.0-98.0); Mean Platelet Volume 8.9 fL (7.4-10.4); Monocytes 2 % (0-10); Neutrophil 79 % (42-75); Platelet Count 283 thou/uL (130-400); Platelet Morphology Comment Appears Adequate; RBC Distribution Width 12.4 % (11.5-14.5); Red Blood Cell (RBC) Count 3.47 mill/uL (4.20-5.40); White Blood Cell (WBC) Count 13.7 thou/uL (4.8-10.8)
[2018-10-15] MEDS ORDERED: Potassium Phosphate 30 MMOL in Sodium Chloride 0.9% 500 ML IV SCH (05:45)
[2018-10-15] MEDS ORDERED: Lidocaine 1% (PF) 30 ML VIAL ONE (06:40)
--- NOTE | 2018-10-15 07:43 | RAD ---
Portable frontal chest radiograph: 10/15/2018 COMPARISON: 10/14/2018 HISTORY: Tracheostomy tube placement, pneumonia FINDINGS: The endotracheal tube has been removed and replaced with a tracheostomy tube. The nasogastr ic tube has been removed. There is blunting of the costophrenic angles suggesting small bilateral pleural effusions, new. New pulmonary vascular congestion with bibasilar airspace disease noted, wors ened on the left and new on the right. No pneumothorax evident. IMPRESSION: New tracheostomy tube in place. Pulmonary parenchymal findings suggest pulmonary edema an d/or worsening bibasilar infectious pneumonitis/aspiration. A degree of opacity in bilateral lung bases may be on the basis of atelectasis. Follow-up advised.
[2018-10-15] MEDS: Chlorhexidine Gluconate 15 ML UDCUP SSP SCH ×2 (08:27→21:09)
[2018-10-15] MEDS: Amlodipine 5 MG TAB PO SCH ×2 (08:28→21:10)
[2018-10-15] MEDS: Losartan 25 MG TAB PO SCH (08:28)
[2018-10-15] MEDS: Famotidine/PF 20 mg/2ml Vial SLOW IVP SCH (08:28)
[2018-10-15] MEDS: Senokot S 8.6-50 MG TAB PO SCH ×2 (08:28→21:10)
[2018-10-15] MEDS: Polyethylene Glycol 3350 17 GM Packet PO SCH (08:28)
[2018-10-15] MEDS: Calcium Carbonate + Vit D 250 MG TAB PO SCH (08:29)
[2018-10-15] MEDS: Sodium Chloride 0.9% 1,000 ML IV SCH (08:30)
--- NOTE | 2018-10-15 08:40 | OP ---
DATE OF PROCEDURE: 10/15/2018 PREOPERATIVE DIAGNOSIS: Head trauma. PROCEDURE PERFORMED: Inferior vena cava filter placement using a Cook Celect. ANESTHESIA: 1% lidocaine. CONTRAST: 6 mL. FLUOROSCOPY: 0.8 minutes. DESCRIPTION OF PROCEDURE: After prepping and draping the right groin for ultrasound-guided puncture, the femoral vein was carried out on first pass. Wire inserted and the Cook dilator and sheath advanced into the distal right common iliac vein where contrast was injected. Caval diameter was satisfactory for deployment and both renal veins were identified. Filter was deployed below the lowest renal vein, which was the right. The patient tolerated the procedure well. Job ID: [id number]
--- NOTE | 2018-10-15 10:49 | PRG ---
DATE OF SERVICE: 10/15/2018 SUBJECTIVE: The patient is status post trach, PEG, and IVC filter placement yesterday. She had no additional events. Her neurologic exam has remained stable overnight. She is requiring still a low dose of Cardene at 2.5 currently. OBJECTIVE: On my exam this morning, the patient does not open her eyes. She does follow commands on the right side. She continues to have a dense left hemiparesis. Her incision is dry and intact. PLAN: Discussed with nursing and will have trauma assist with transition off the Cardene. Her neurologic exam is stable. Will need to begin planning rehab. Job ID: [id number] [facility]
[2018-10-15] MEDS ORDERED: Iopamidol 370 76% 50 ML VIAL FS ONE (12:33)
[2018-10-15] MEDS: hydrALAZINE 20 MG/ML VIAL SLOW IVP PRN (12:42)
--- NOTE | 2018-10-15 13:44 | PRG ---
DATE OF SERVICE: 10/15/2018 SUBJECTIVE: Ms. Denise is a 78-year-old woman, who is post injury day #4 status post a ground level fall. The patient sustained acute severe traumatic brain injury with a large right frontotemporal intracerebral hemorrhage, which required craniectomy and evacuation. The patient is also postoperative day #1 status post percutaneous tracheostomy tube placement. This morning, she remains somnolent, but she awakens to the voice. She is unable to open her eyes. She, however, follows commands with right upper and lower extremities. She remains with significant left hemiparesis. OBJECTIVE: VITAL SIGNS: This morning include blood pressure 137/59, pulse is 79, respiratory rate is 18, temperature is 99.1 degrees Fahrenheit, maximum temperature in the last 24 hours is 100 degrees Fahrenheit. Oxygen saturation currently is 97% on FiO2 of 30%. HEENT: Reveals resolving bilateral orbital edema. Both pupils are equal and reactive to light. HEART: Reveals regular rate and rhythm. No murmurs or gallops auscultated. LUNGS: Clear to auscultation bilaterally. Her breathing is regular and unlabored. ABDOMEN: Soft, nontender, and nondistended. EXTREMITIES: Reveal 2+ radial and pedal pulses bilaterally. She has no ankle edema present. MUSCULOSKELETAL: Reveals 4/5 muscle strength in right upper and right lower extremities. Left upper extremity is 1/5. Left lower extremity is 2/5. LABORATORY DATA: Laboratory findings today include CBC with 13,700 white blood cells, hemoglobin and hematocrit are stable at 10.6 and 32.9 respectively, platelet count is 283,000. Differential count as follows; 79 segmented neutrophils, 19 lymphocytes, and 2 monocytes. Metabolic profile; sodium 143, potassium 3.6, chloride is 113, bicarb is 23, BUN 12, creatinine 0.51, glucose 175, magnesium is 2.3, and phosphorus is 1.0. IMPRESSION: 1. Postoperative day #4 status post craniectomy and evacuation of acute traumatic intracerebral hemorrhage. 2. Postoperative day #1 status post percutaneous tracheostomy tube placement. 3. Acute posttraumatic respiratory failure, improving. 4. Acute hypophosphatemia. 5. Acute hypokalemia. PLAN: 1. Correct abnormal electrolytes. 2. Continue with ventilator support and wean to trach collar as tolerated. 3. Increase activity per Physical and Occupational Therapy. 4. We will ask PM and R to evaluate the patient about transfer to inpatient rehabilitation post discharge once she is more neurologically improved and has been liberated from ventilator support. Total Critical Care time is 40 minutes. Job ID: [id number]
[2018-10-15] MEDS: traMADol HCl 50 MG TAB PO PRN (15:35)
[2018-10-15] MEDS: Acetaminophen 500 MG TAB PO SCH ×2 (15:36→21:16)
[2018-10-15] MEDS: cefTRIAXone\\ROCEPHIN 2 GM in Sodium Chloride 0.9% 100 ML IVPB SCH (17:05)
[2018-10-15] MEDS: Famotidine 20 MG TAB PO SCH (21:10)
[2018-10-15] MEDS: Simvastatin 20 MG TAB PO SCH (21:10)
[2018-10-16] MEDS: HumaLOG 300 UNITS/3 ML VIAL SC PRN ×5 (00:19→20:46)
[2018-10-16] MEDS: Acetaminophen 500 MG TAB PO SCH ×4 (04:43→21:04)
[2018-10-16] MEDS: hydrALAZINE 20 MG/ML VIAL SLOW IVP PRN ×2 (04:43→14:27)
[2018-10-16 05:32] LABS: Calcium 8.9 mg/dL (7.8-10.44); Chloride 112 mmol/L (98-107); Magnesium 2.1 mg/dL (1.6-2.6); Potassium 4.2 mmol/L (3.5-5.1); Sodium 144 mmol/L (136-145)
[2018-10-16 05:45] LABS: Glucose 181 mg/dL (83-110)
[2018-10-16 05:46] LABS: Carbon Dioxide 19 mmol/L (23-31)
[2018-10-16 05:48] LABS: Calc. Creatinine Clearance 99 mL/min (70-130); Estimated GFR-MDRD Greater than 90
[2018-10-16 05:49] LABS: BUN (Urea Nitrogen) 19 mg/dL (9.8-20.1)
[2018-10-16 05:57] LABS: Anion Gap 17 mmol/L (10-20); Phosphorus 2.3 mg/dL (2.3-4.7)
[2018-10-16] MEDS ORDERED: PHOS-NAK 1 PKT PACK PO SCH (07:45)
[2018-10-16] MEDS ORDERED: Bisacodyl 10 MG SUPP PR SCH (08:45)
[2018-10-16] MEDS: Calcium Carbonate + Vit D 250 MG TAB PO SCH (09:15)
[2018-10-16] MEDS: Polyethylene Glycol 3350 17 GM Packet PO SCH (09:20)
[2018-10-16] MEDS: Chlorhexidine Gluconate 15 ML UDCUP SSP SCH ×2 (09:20→20:52)
[2018-10-16] MEDS: Losartan 25 MG TAB PO SCH (09:21)
[2018-10-16] MEDS: Famotidine 20 MG TAB PO SCH ×2 (09:22→20:53)
[2018-10-16] MEDS: Senokot S 8.6-50 MG TAB PO SCH ×2 (09:22→20:53)
--- NOTE | 2018-10-16 10:17 | PRG ---
DATE OF SERVICE: 10/16/2018 SUBJECTIVE: The patient is postoperative day #5, status post right-sided craniotomy with hematoma evacuation after a fall. She has remained neurologically stable since this event. No acute changes overnight. She has gotten a trach, PEG, and IVC filter. She has also been evaluated by OMFS, who planned to continue follow as outpatient. OBJECTIVE: On exam this morning, the patient does not open her eyes. She is following commands on the right side and will squeeze my hand lightly and moves the right foot. She is also seen spontaneously moving the left lower extremity, but she continues to have significant left-sided hemiparesis. Her incision is dry and intact. ASSESSMENT AND PLAN: The patient has remained neurologically stable. We will plan to follow up with her outpatient in 4 weeks with a repeat head CT. She will need inpatient rehabilitation and the Trauma and Case Management are assisting on this. Please reach out to Neurosurgery for additional questions or concerns. Job ID: [id number]
--- NOTE | 2018-10-16 13:29 | PRG ---
DATE OF SERVICE: 10/16/2018 SUBJECTIVE: Ms. Denise is a 78-year-old woman, who is postoperative day #5, status post emergent right craniectomy and evacuation of traumatic intracerebral hemorrhage. She is postoperative day #2, status post percutaneous tracheostomy and endoscopic gastrostomy tube placement. She remains on trach collar this morning. The patient is somnolent, but interactive. She does not open her eyes. She does squeeze my hand and follows command on the right side. She remains with left hemiparesis. The patient is tolerating tube feeds at goal, but has not had any bowel movement. OBJECTIVE: VITAL SIGNS: This morning include blood pressure 142/77, pulse is 81, respiratory rate is at 22, temperature is 98.7 degrees Fahrenheit, maximum temperature in last 24 hours is 99.5 degrees Fahrenheit. Oxygen saturation is 99% on trach collar at 50%. HEENT: Pupils are equal, round, and reactive to light bilaterally. HEART: Reveals regular rate and rhythm. No murmurs or gallops auscultated. LUNGS: Clear to auscultation bilaterally. Breathing, regular and nonlabored. ABDOMEN: Soft, nontender, and nondistended. NEUROLOGIC: The patient has right hemiparesis. [place] Coma Scale remains at the E1 M6 V1T. LABORATORY FINDINGS: Today include metabolic profile; sodium 144, potassium is 4.2, chloride is 112, bicarb is 19, BUN is 19, creatinine 0.53, glucose 181, magnesium 2.1, and phosphorus is 2.3. IMPRESSION: 1. Post injury and postoperative day #5, status post right craniectomy and evacuation of acute traumatic intracerebral hemorrhage. 2. Resolving acute posttraumatic respiratory failure. PLAN: 1. Increase activity per Physical and Occupational Therapy. The patient will be evaluated by Speech and Language Pathology for cognition. 2. We anticipate transfer to inpatient rehabilitation in next few days. Job ID: [id number]
[2018-10-16] MEDS: cefTRIAXone\\ROCEPHIN 2 GM in Sodium Chloride 0.9% 100 ML IVPB SCH (18:00)
[2018-10-16] MEDS: Amlodipine 5 MG TAB PO SCH (20:52)
[2018-10-16] MEDS: Simvastatin 20 MG TAB PO SCH (20:53)
[2018-10-16] MEDS ORDERED: Losartan 25 MG TAB PO SCH (21:00)
[2018-10-17] MEDS: HumaLOG 300 UNITS/3 ML VIAL SC PRN ×5 (00:11→20:13)
[2018-10-17] MEDS: Acetaminophen 500 MG TAB PO SCH ×4 (04:15→22:11)
[2018-10-17 05:01] LABS: Anion Gap 10 mmol/L (10-20); BUN (Urea Nitrogen) 21 mg/dL (9.8-20.1); Calc. Creatinine Clearance 101 mL/min (70-130); Calcium 9.7 mg/dL (7.8-10.44); Carbon Dioxide 29 mmol/L (23-31); Chloride 111 mmol/L (98-107); Estimated GFR-MDRD Greater than 90; Glucose 167 mg/dL (83-110); Magnesium 1.8 mg/dL (1.6-2.6); Potassium 3.3 mmol/L (3.5-5.1); Sodium 147 mmol/L (136-145)
[2018-10-17 05:17] LABS: Band 2 % (5-11); Eosinophils 3 % (0-10); Hemoglobin 11.2 g/dL (12.0-16.0); Lymphocytes 17 % (21-51); MDiff Complete? YES; Mean Corpuscular HGB CONC 31.4 g/dL (32.0-36.0); Mean Corpuscular Hemoglobin 29.8 pg (27.0-31.0); Mean Platelet Volume 8.2 fL (7.4-10.4); Monocytes 10 % (0-10); Neutrophil 68 % (42-75); Platelet Count 383 thou/uL (130-400); Platelet Morphology Comment Appears Adequate; RBC Distribution Width 12.6 % (11.5-14.5); Red Blood Cell (RBC) Count 3.76 mill/uL (4.20-5.40); White Blood Cell (WBC) Count 10.3 thou/uL (4.8-10.8)
[2018-10-17] MEDS ORDERED: Magnesium 2 GM/50 ML 2 GM in Premix Bag 1 BAG IVPB SCH (08:45)
[2018-10-17] MEDS: Calcium Carbonate + Vit D 250 MG TAB PO SCH (08:46)
[2018-10-17] MEDS: Chlorhexidine Gluconate 15 ML UDCUP SSP SCH ×2 (08:46→20:02)
[2018-10-17] MEDS: Losartan 25 MG TAB PO SCH (08:46)
[2018-10-17] MEDS: Famotidine 20 MG TAB PO SCH ×2 (08:47→20:01)
[2018-10-17] MEDS: Senokot S 8.6-50 MG TAB PO SCH ×2 (09:30→20:02)
[2018-10-17] MEDS: Potassium Phosphate 30 MMOL in Sodium Chloride 0.9% 500 ML IVPB SCH ×2 (09:30→09:46)
[2018-10-17] MEDS: Polyethylene Glycol 3350 17 GM Packet PO SCH (09:30)
[2018-10-17] MEDS ORDERED: Potassium Phosphate 30 MMOL in Sodium Chloride 0.9% 250 ML 250 ML IVPB SCH (09:45)
[2018-10-17] MEDS: hydrALAZINE 20 MG/ML VIAL SLOW IVP PRN ×2 (10:00→22:14)
--- NOTE | 2018-10-17 10:17 | RAD ---
PORTABLE CHEST: HISTORY: Respiratory distress. COMPARISON: 10/15/2018 study. FINDINGS: Heart size is slightly enlarged. There are some pleural changes in the left base. The parenchymal c hanges in the right lung have largely resolved and parahilar markings are improved. IMPRESSION: Interval improvement to the appearance of the chest probably related mainly to resolving edema, still some persistent pleural and parenchymal change in the left base. POS: [facility]
--- NOTE | 2018-10-17 11:17 | PRG ---
DATE OF SERVICE: 10/17/2018 SUBJECTIVE: Ms. Denise is a 78-year-old woman, who is post injury day #6, status post ground level fall. She is also postop day #6, status post emergent right craniectomy and evacuation of traumatic intracerebral hemorrhage. She is postoperative day #3, status post percutaneous tracheostomy and endoscopic gastrostomy tube placement. She is on trach collar now for the last 24 hours. She is on no vasopressor or inotropic support. Urinary output is adequate. She is tolerating tube feeds at goal. She is having bowel movements. OBJECTIVE: VITAL SIGNS: This morning include blood pressure 141/69, pulse is 72, respiratory rate is 21, maximum temperature in the last 24 hours is 99.3 degrees Fahrenheit, oxygen saturation currently is 94% on FiO2 of 40% on trach collar. HEENT: Pupils are equal, round, and reactive to light bilaterally. NECK: She has no jugular venous distention noted. HEART: Regular rate and rhythm. No murmurs or gallops auscultated. LUNGS: Clear to auscultation bilaterally. Breathing regular and nonlabored. ABDOMEN: Soft, nontender, nondistended. EXTREMITIES: 2+ radial and pedal pulses bilaterally. NEUROLOGICAL: She remains with left hemiparesis. She follows commands with right upper and lower extremities. MUSCULOSKELETAL: A 4/5 muscle strength in right upper and lower extremities. Left upper extremity is 2-3 out of 5. Left lower extremity remains 1/5. LABORATORY DATA: Laboratory findings today include a CBC with 10,200 white blood cells. Hemoglobin and hematocrit stable at 11.2 and 35.7 respectively. Platelet count 283,000. Metabolic profile; sodium 147, potassium is 3.3, chloride is 111, bicarb is 29, BUN 21, creatinine 0.55, glucose 167, magnesium 1.8, and phosphorus 3.0. IMPRESSIONS: 1. Post injury, on postoperative day #6, status post emergent right craniectomy and evacuation of acute large right intracerebral hemorrhage. 2. Essential hypertension with hypokalemia. 3. Acute hypomagnesemia. 4. Acute hypophosphatemia. PLAN: 1. Correct abnormal electrolytes. 2. Increase activity per Physical and Occupational therapy. 3. Anticipate transfer to inpatient rehabilitation in next few days once insurance authorization and bed availability have been secured. Job ID: [id number]
--- NOTE | 2018-10-17 16:36 | EKG ---
Test Reason : FALL Blood Pressure : / mmHG Vent. Rate : 066 BPM Atrial Rate : 066 BPM P-R Int : 182 ms QRS Dur : 094 ms QT Int : 444 ms P-R-T Axes : 057 -31 079 degrees QTc Int : 465 ms Normal sinus rhythm with sinus arrhythmia Possible Left atrial enlargement Left axis deviation Left ventricular hypertrophy Cannot rule out Septal infarct , age undetermined Abnormal ECG Confirmed by HAL DE LOS SANTOS D.O. ([id number]), supervising editor news reel ZACH GEORGE ([id number]) on 10/17/2018 4:36:01 PM Referred By: ERSMD Confirmed By:HAL DE LOS SANTOS D.O.
[2018-10-17] MEDS: cefTRIAXone\\ROCEPHIN 2 GM in Sodium Chloride 0.9% 100 ML IVPB SCH (17:46)
[2018-10-17] MEDS: Losartan 25 MG TAB PER TUBE SCH (20:01)
[2018-10-17] MEDS: Amlodipine 5 MG TAB PO SCH (20:01)
[2018-10-17] MEDS: Simvastatin 20 MG TAB PO SCH (20:02)
[2018-10-18] MEDS: Acetaminophen 500 MG TAB PO SCH (04:07)
[2018-10-18] MEDS: hydrALAZINE 20 MG/ML VIAL SLOW IVP PRN ×3 (04:07→23:17)
[2018-10-18 05:06] LABS: Anion Gap 13 mmol/L (10-20); BUN (Urea Nitrogen) 20 mg/dL (9.8-20.1); Calc. Creatinine Clearance 95 mL/min (70-130); Calcium 9.6 mg/dL (7.8-10.44); Carbon Dioxide 26 mmol/L (23-31); Chloride 109 mmol/L (98-107); Estimated GFR-MDRD Greater than 90; Glucose 258 mg/dL (83-110); Magnesium 2.2 mg/dL (1.6-2.6); Phosphorus 3.3 mg/dL (2.3-4.7); Potassium 3.7 mmol/L (3.5-5.1); Sodium 144 mmol/L (136-145)
[2018-10-18] MEDS: HumaLOG 300 UNITS/3 ML VIAL SC PRN ×3 (05:40→19:12)
[2018-10-18] MEDS ORDERED: Potassium Phosphate 15 MMOL in Sodium Chloride 0.9% 250 ML 250 ML IVPB SCH (08:15)
[2018-10-18] MEDS: Polyethylene Glycol 3350 17 GM Packet PO SCH (08:31)
[2018-10-18] MEDS: Senokot S 8.6-50 MG TAB PO SCH ×2 (08:32→20:12)
[2018-10-18] MEDS: Acetaminophen 650 MG/20.3 ML UDCUP PO SCH ×3 (09:18→23:17)
[2018-10-18] MEDS: Calcium Carbonate + Vit D 250 MG TAB PO SCH (09:19)
[2018-10-18] MEDS: Chlorhexidine Gluconate 15 ML UDCUP SSP SCH ×2 (09:19→20:10)
[2018-10-18] MEDS: Losartan 25 MG TAB PER TUBE SCH ×2 (09:19→20:10)
[2018-10-18] MEDS: Famotidine 20 MG TAB PO SCH ×2 (09:20→20:32)
--- NOTE | 2018-10-18 15:53 | PRG ---
DATE OF SERVICE: 10/18/2018 SUBJECTIVE: The patient was seen this morning, lying in bed with no signs of acute distress. Overnight, the patient was hypertensive between 150s to 170s and received IV hydralazine once. She has started to move her right upper extremity more purposefully in response to healthcare providers touching her body to perform daily care. She has not opened her eyes to commands yet, but nursing did report that she opened her eyes a little bit when they were turning her. She is having bowel movements and is making good urine. She has been on trach collar now for over 48 hours. She is not on any pressors. OBJECTIVE: VITAL SIGNS: Temperature 98.3, pulse 89, respirations 24, oxygen saturation 94% on trach collar, and blood pressure 153/65. GENERAL: Elderly female, lying in bed with facial swelling. HEENT: Pupils are equal, round, and reactive to light bilaterally. She has some facial swelling and bruising that has improved. PULMONARY: Equal chest rise and fall. Clear breath sounds bilaterally. CARDIAC: Regular rate and rhythm. No murmurs, gallops, or rubs. ABDOMEN: Soft, nontender, and nondistended. EXTREMITIES: 2+ pulses in all extremities. NEUROLOGIC: She remains with left hemiparesis. She follows commands with the right upper and lower extremities and has been making more purposeful movements to the right upper extremity. She does not open her eyes. GCS; eyes 1, verbal 1, motor 6, equals 8T. LABORATORY FINDINGS: Sodium 144, potassium 3.7, chloride 109, carbon dioxide 26, BUN 20, creatinine 0.85, glucose 258, phosphorus 3.3, magnesium 2.2. DIAGNOSTIC FINDINGS: There are no new diagnostic findings to report. ASSESSMENT: 1. Post injury, postop day 7, status post emergent right craniotomy and evacuation of acute large intracranial hemorrhage. 2. Left orbital floor blowout fracture. 3. Left maxillary sinus fracture. 4. Aspiration pneumonia, improved. 5. Acute hypokalemia and hypophosphatemia. 6. Hypertension, improved. PLAN: Continue with current tube feeds and free water flushes. Continue physical and occupational therapy. Continue current management of hypertension with p.r.n. hydralazine as well as scheduled amlodipine and losartan. We will decrease neuro checks to q.4 hours and glucose checks to q.6 hours. The patient is pending placement in acute rehab. The patient was discussed with Dr. Morgan before this dictation. Job ID: [id number]
[2018-10-18] MEDS: cefTRIAXone\\ROCEPHIN 2 GM in Sodium Chloride 0.9% 100 ML IVPB SCH (17:30)
[2018-10-18] MEDS: Simvastatin 20 MG TAB PO SCH (20:10)
[2018-10-18] MEDS: Amlodipine 5 MG TAB PO SCH (20:11)
[2018-10-19] MEDS: HumaLOG 300 UNITS/3 ML VIAL SC PRN ×5 (00:37→20:22)
[2018-10-19] MEDS: traMADol HCl 50 MG TAB PO PRN (02:01)
[2018-10-19 04:51] LABS: Anion Gap 13 mmol/L (10-20); BUN (Urea Nitrogen) 21 mg/dL (9.8-20.1); Calc. Creatinine Clearance 92 mL/min (70-130); Calcium 9.9 mg/dL (7.8-10.44); Carbon Dioxide 28 mmol/L (23-31); Chloride 111 mmol/L (98-107); Estimated GFR-MDRD Greater than 90; Glucose 256 mg/dL (83-110); Magnesium 2.1 mg/dL (1.6-2.6); Potassium 3.5 mmol/L (3.5-5.1); Sodium 148 mmol/L (136-145)
[2018-10-19] MEDS: Acetaminophen 650 MG/20.3 ML UDCUP PO SCH ×4 (05:09→21:48)
[2018-10-19] MEDS: Calcium Carbonate + Vit D 250 MG TAB PO SCH (09:00)
[2018-10-19] MEDS: Losartan 25 MG TAB PER TUBE SCH ×2 (09:00→21:47)
[2018-10-19] MEDS: Famotidine 20 MG TAB PO SCH ×2 (09:00→21:48)
[2018-10-19] MEDS: Chlorhexidine Gluconate 15 ML UDCUP SSP SCH ×2 (09:01→21:48)
[2018-10-19] MEDS: Polyethylene Glycol 3350 17 GM Packet PO SCH (09:02)
[2018-10-19] MEDS: Insulin Glargine 10 UNITS in Pre-Filled Syringe 1 EACH SC SCH (10:54)
--- NOTE | 2018-10-19 11:47 | PRG ---
DATE OF SERVICE: 10/19/2018 SUBJECTIVE: Ms. Denise is a 78-year-old woman, who is post injury day #8, status post ground level fall. The patient sustained multiple traumatic injuries including facial fracture, acute severe traumatic brain injury with large right intracranial hemorrhage, of which the patient is postoperative day #8, status post emergent craniectomy and evacuation of the said hematoma. The patient is postoperative day #5, status post percutaneous tracheostomy and endoscopic gastrostomy tube placement. She is postop day #4, status post inferior vena cava filter placement. This morning, she is somnolent, but awakens to the voice. She opens the eyes to sound and follows command with the right upper and lower extremities. She remains with left hemiparesis with a total left-sided neglect. She tolerates tube feeds at goal having normal bowel and urinary function. OBJECTIVE: VITAL SIGNS: This morning include blood pressure 158/61, pulse is 69, respiratory rate is 17, maximum temperature in last 24 hours is 98.8 degrees Fahrenheit, oxygen saturation is 97% on trach collar 28%. HEENT: Reveals nearly resolved facial swelling. Both pupils are equal and reactive to light. NECK: She has no jugular venous distention noted. HEART: Reveals regular rate and rhythm. No murmurs or gallops auscultated. LUNGS: Clear to auscultation bilaterally. Her breathing is regular and nonlabored. ABDOMEN: Soft, nontender, and nondistended. EXTREMITIES: Reveal 2+ radial and pedal pulses bilaterally. NEUROLOGIC: Reveals left hemiparesis. MUSCULOSKELETAL: Reveals 4 to 5/5 right upper and lower extremities. Left upper extremity is 2/5. Left lower extremity is 3/5. LABORATORY DATA: Laboratory findings today includes a metabolic profile; sodium 148, potassium is 3.5, chloride is 111, bicarbonate is 28, BUN is 21, creatinine is 0.60, glucose 256, phosphorus is 3.0, magnesium is 2.1. IMPRESSION: 1. Post injury day #8, status post ground level fall. 2. Acute severe traumatic brain injury with left hemiparesis. 3. Acute hypernatremia. 4. Acute hypokalemia. PLAN: 1. Correct abnormal electrolytes. 2. Increase free water intake. 3. Increase activity per Physical and Occupational therapy. 4. Anticipate transfer to inpatient rehabilitation once insurance authorization and bed availability has been secured. 5. The patient has remained hemodynamically and neurologically stable over the last 48 hours. We will transfer her to step-down unit. Job ID: [id number]
[2018-10-19] MEDS: cefTRIAXone\\ROCEPHIN 2 GM in Sodium Chloride 0.9% 100 ML IVPB SCH (16:46)
[2018-10-19] MEDS: Simvastatin 20 MG TAB PO SCH (21:48)
[2018-10-19] MEDS: Amlodipine 5 MG TAB PO SCH (21:48)
[2018-10-20] MEDS: HumaLOG 300 UNITS/3 ML VIAL SC PRN ×4 (00:25→20:57)
[2018-10-20] MEDS: hydrALAZINE 20 MG/ML VIAL SLOW IVP PRN (01:05)
[2018-10-20] MEDS: Acetaminophen 650 MG/20.3 ML UDCUP PO SCH ×4 (04:40→21:00)
[2018-10-20 05:58] LABS: #Eosinphils 0.4 thou/uL (0.0-0.7); #Lymphocytes 1.9 thou/uL (1.20-3.40); #Monocytes 1.1 thou/uL (0.11-0.59); #Neutrophils 8.9 thou/uL (1.40-6.50); %Basophils 0.2 % (0.0-1.0); %Eosinophils 3.3 % (0.0-10.0); %Lymphocytes 15.7 % (21.0-51.0); %Monocytes 8.6 % (0.0-10.0); %Neutrophils 72.1 % (42.0-75.0); Hemoglobin 10.9 g/dL (12.0-16.0); Mean Corpuscular HGB CONC 31.3 g/dL (32.0-36.0); Mean Corpuscular Volume 95.8 fL (78.0-98.0); Mean Platelet Volume 8.1 fL (7.4-10.4); Platelet Count 438 thou/uL (130-400); RBC Distribution Width 12.8 % (11.5-14.5); Red Blood Cell (RBC) Count 3.63 mill/uL (4.20-5.40); White Blood Cell (WBC) Count 12.4 thou/uL (4.8-10.8)
[2018-10-20 06:17] LABS: Anion Gap 14 mmol/L (10-20); BUN (Urea Nitrogen) 22 mg/dL (9.8-20.1); Calc. Creatinine Clearance 85 mL/min (70-130); Calcium 9.5 mg/dL (7.8-10.44); Carbon Dioxide 26 mmol/L (23-31); Chloride 108 mmol/L (98-107); Estimated GFR-MDRD 88; Glucose 295 mg/dL (83-110); Magnesium 1.8 mg/dL (1.6-2.6); Phosphorus 3.5 mg/dL (2.3-4.7); Potassium 3.7 mmol/L (3.5-5.1); Sodium 144 mmol/L (136-145)
[2018-10-20] MEDS ORDERED: Ferrous Fumarate 324 MG TAB PO SCH ×2 (08:00→21:00)
[2018-10-20] MEDS ORDERED: Potassium Phosphate 15 MMOL in Sodium Chloride 0.9% 250 ML 250 ML IVPB SCH (08:00)
[2018-10-20] MEDS ORDERED: Magnesium Chloride 64 MG TAB PO SCH (08:00)
[2018-10-20] MEDS: Famotidine 20 MG TAB PO SCH ×2 (08:45→21:01)
[2018-10-20] MEDS: Losartan 25 MG TAB PER TUBE SCH ×2 (08:45→21:02)
[2018-10-20] MEDS: Chlorhexidine Gluconate 15 ML UDCUP SSP SCH ×2 (08:45→21:00)
[2018-10-20] MEDS: Calcium Carbonate + Vit D 250 MG TAB PO SCH (08:46)
[2018-10-20] MEDS: Insulin Glargine 10 UNITS in Pre-Filled Syringe 1 EACH SC SCH (08:46)
[2018-10-20] MEDS: Polyethylene Glycol 3350 17 GM Packet PO SCH (08:47)
[2018-10-20] MEDS ORDERED: Ascorbic Acid 500 mg Chewable Tablet PO SCH (09:00)
[2018-10-20] MEDS ORDERED: metFORMIN 500 MG TAB PO SCH (09:00)
--- NOTE | 2018-10-20 11:50 | PRG ---
DATE OF SERVICE: 10/20/2018 SUBJECTIVE: Ms. Denise is a 78-year-old woman, post injury day #9 status post ground-level fall. The patient sustained an acute severe traumatic brain injury, including a large right-sided intracerebral hemorrhage, which required craniectomy and evacuation. This morning, [place] Coma Scale is noted at [id number]. She remains with left-sided hemiparesis. She tolerates tube feeds at goal and having adequate urinary function. PHYSICAL EXAMINATION: VITAL SIGNS: This morning include blood pressure of 146/59, pulse 74, respiratory rate 26, maximum temperature in last 24 hours is 98.9 degrees Fahrenheit, and oxygen saturation is 93% on trach collar at 30%. HEENT: Pupils are equally round and reactive to light bilaterally. HEART: Regular rate and rhythm. No murmurs or gallops auscultated. LUNGS: Clear to auscultation bilaterally. Her breathing is regular and nonlabored. ABDOMEN: Soft, nontender, and nondistended. Bowel sounds in all 4 quadrants appear normoactive. NEUROLOGIC: The patient remains with left hemiparesis and left-sided neglect. MUSCULOSKELETAL: 4/5 muscle strength in right upper and right lower extremities. Left upper extremity is 2/5 and left lower extremity is 3/5. LABORATORY FINDINGS: Today include a CBC with 12,400 white blood cells, hemoglobin and hematocrit of 10.9 and 34.7 respectively. Platelet count is 438,000. Metabolic profile; sodium 144, potassium 3.7, chloride is 108, bicarb is 26, BUN is 22, creatinine 0.65, glucose 295, magnesium is 1.8, and phosphorus is 3.5. CLINICAL IMPRESSIONS: 1. Post injury day #9 status post ground-level fall. 2. Acute traumatic brain injury with residual left hemiparesis. 3. Stable acute pulmonary insufficiency. 4. Acute hypokalemia. 5. Acute hypomagnesemia. 6. Acute hyperglycemia. PLAN: 1. We will optimize glucose control. 2. Correct abnormal electrolytes. 3. Increase activity per Physical and Occupational Therapy. The patient has been evaluated by PM and R for possible transfer to inpatient rehabilitation in the next few days once bed availability and insurance authorization has been secured. Job ID: [id number]
[2018-10-20] MEDS: cefTRIAXone\\ROCEPHIN 2 GM in Sodium Chloride 0.9% 100 ML IVPB SCH (17:26)
[2018-10-20] MEDS: Amlodipine 5 MG TAB PO SCH (21:01)
[2018-10-20] MEDS: Simvastatin 20 MG TAB PO SCH (21:02)
[2018-10-20] MEDS: Ascorbic Acid 500 mg Chewable Tablet PO SCH (21:02)
--- NOTE | 2018-10-21 00:42 | PRG ---
DATE OF SERVICE: 10/20/2018 SUBJECTIVE: The patient is currently in the critical care unit. She is awaiting transfer to the [facility]. She is status post severe traumatic brain injury, status post right-sided craniectomy. The patient has remained stable here in the critical care unit postoperatively. She has also undergone percutaneous tracheostomy tube placement, which she has tolerated trach collar for greater than 24 hours. She will be moved to the [facility] as soon as a bed is available. OBJECTIVE: VITAL SIGNS: Remained stable. She is afebrile. NEUROLOGIC: Neurologically is unchanged. She remains Jose Coma Scale of 10 with left-sided hemiparesis. ASSESSMENT AND PLAN: Status post fall with severe right-sided intracranial hemorrhage, status post craniectomy and evacuation. Plan will be to continue supportive care as per the Day Team. Job ID: [id number]
[2018-10-21] MEDS: Acetaminophen 650 MG/20.3 ML UDCUP PO SCH ×4 (04:32→21:27)
[2018-10-21 05:30] LABS: #Eosinphils 0.4 thou/uL (0.0-0.7); #Lymphocytes 1.8 thou/uL (1.20-3.40); #Monocytes 1.3 thou/uL (0.11-0.59); #Neutrophils 7.8 thou/uL (1.40-6.50); %Basophils 0.3 % (0.0-1.0); %Eosinophils 3.5 % (0.0-10.0); %Lymphocytes 15.7 % (21.0-51.0); %Monocytes 11.8 % (0.0-10.0); %Neutrophils 68.7 % (42.0-75.0); Mean Corpuscular HGB CONC 31.2 g/dL (32.0-36.0); Mean Corpuscular Volume 95.9 fL (78.0-98.0); Mean Platelet Volume 8.3 fL (7.4-10.4); Platelet Count 463 thou/uL (130-400); RBC Distribution Width 12.8 % (11.5-14.5); Red Blood Cell (RBC) Count 3.66 mill/uL (4.20-5.40); White Blood Cell (WBC) Count 11.4 thou/uL (4.8-10.8)
[2018-10-21 05:50] LABS: Anion Gap 13 mmol/L (10-20); BUN (Urea Nitrogen) 22 mg/dL (9.8-20.1); Calc. Creatinine Clearance 89 mL/min (70-130); Carbon Dioxide 27 mmol/L (23-31); Chloride 108 mmol/L (98-107); Estimated GFR-MDRD Greater than 90; Glucose 274 mg/dL (83-110); Magnesium 1.9 mg/dL (1.6-2.6); Phosphorus 3.5 mg/dL (2.3-4.7); Potassium 3.9 mmol/L (3.5-5.1); Sodium 144 mmol/L (136-145)
[2018-10-21] MEDS: HumaLOG 300 UNITS/3 ML VIAL SC PRN (05:57)
[2018-10-21] MEDS ORDERED: Ascorbic Acid 500 mg Chewable Tablet PO SCH (08:00)
[2018-10-21] MEDS: Insulin Regular 300 UNITS/3 ML VIAL SC PRN ×4 (08:28→21:13)
[2018-10-21] MEDS: Insulin Glargine 10 UNITS in Pre-Filled Syringe 1 EACH SC SCH (08:29)
[2018-10-21] MEDS: Saccharomyces boulardii 250 MG CAP PO SCH (08:33)
[2018-10-21] MEDS: Losartan 25 MG TAB PER TUBE SCH ×2 (08:33→20:02)
[2018-10-21] MEDS: Famotidine 20 MG TAB PO SCH ×2 (08:34→20:03)
[2018-10-21] MEDS: Calcium Carbonate + Vit D 250 MG TAB PO SCH (08:34)
[2018-10-21] MEDS: Chlorhexidine Gluconate 15 ML UDCUP SSP SCH ×2 (08:34→20:04)
[2018-10-21] MEDS: Ascorbic Acid 500 mg Chewable Tablet PO SCH ×2 (08:36→17:10)
[2018-10-21] MEDS ORDERED: cloNIDine 0.1 MG TAB PO SCH (09:30)
[2018-10-21] MEDS: Metamucil PACK PO SCH ×2 (10:10→20:04)
[2018-10-21] MEDS: cloNIDine 0.1 MG TAB PO SCH ×3 (11:41→23:01)
[2018-10-21] MEDS ORDERED: Insulin Glargine 5 UNITS in Pre-Filled Syringe 1 EACH SC SCH (12:00)
--- NOTE | 2018-10-21 12:15 | PRG ---
DATE OF SERVICE: 10/21/2018 HISTORY: Ms. Denise is a 78-year-old woman, who is 10 days status post ground level fall. The patient sustained an acute severe traumatic brain injury including a large right-sided intracranial hemorrhage, which required a craniectomy and evacuation. She is somnolent today. She awakens to the voice. She follows commands with her right upper and lower extremities. She remains with significant left-sided neglect and hemiparesis. She tolerates tube feeds at goal. She is having multiple loose bowel movements. Urinary output has been adequate. OBJECTIVE: VITAL SIGNS: This morning include blood pressure 129/54, pulse is 69, respiratory rate is 26, temperature is 99 degrees Fahrenheit. Maximum temperature in last 24 hours is 99.7 degrees Fahrenheit. HEENT: Pupils are equal, round, reactive to light bilaterally. HEART: Reveals regular rate and rhythm. No murmurs or gallops auscultated. LUNGS: Clear to auscultation bilaterally. Her breathing is regular and nonlabored. ABDOMEN: Soft, nontender, and nondistended. EXTREMITIES: Reveal 2+ radial and pedal pulses bilaterally. No ankle edema is present. LABORATORY FINDINGS: Today include a CBC with 11,400 white blood cells, hemoglobin and hematocrit are 11.0 and 35.1 respectively. Platelet count is 463,000. Metabolic profile; sodium 144, potassium 3.9, chloride is 108, bicarb is 27, BUN 22, creatinine 0.62, glucose is 274, magnesium 1.9, and phosphorus 3.5. IMPRESSIONS: 1. Post injury day #10, status post ground level fall. 2. Acute severe traumatic brain injury with residual left hemiparesis. 3. Acute hyperglycemia. 4. Resolving acute hypokalemia. 5. Acute hypomagnesemia. PLAN: 1. Correct abnormal electrolytes. 2. We will optimize glucose control. 3. Increase activity per Physical and Occupational Therapy. 4. We will downsize the tracheostomy tube today. 5. Anticipate transfer to inpatient rehabilitation as soon as the insurance authorization and bed availability have been confirmed. Job ID: [id number]
[2018-10-21] MEDS: Ferrous Sulfate 325 MG TAB PO SCH (17:12)
[2018-10-21] MEDS: Simvastatin 20 MG TAB PO SCH (20:02)
[2018-10-21] MEDS: Amlodipine 5 MG TAB PO SCH (20:03)
[2018-10-21] MEDS: Amantadine HCl 100 mg Capsule PO SCH (20:03)
--- NOTE | 2018-10-21 23:38 | PRG ---
DATE OF SERVICE: 10/21/2018 SUBJECTIVE: The patient is currently on the IMCU. She moved last night. During the day and last night, she had no issues. She is doing well according to the nurse and has had no issues. Of note, while I was examining the patient with the nurse, we did notice movement to her left foot with painful stimuli. This was reproduced twice. Unfortunately, her left upper extremity has not reacted the same, but this is definitely an improvement from my exam last night. The patient is tolerating her tube feeds and her trach collar. OBJECTIVE: VITAL SIGNS: Stable. The patient has been afebrile. NEUROLOGIC: She remains a GCS of 10 with the improvement of some noted movement to the left lower extremity. ASSESSMENT AND PLAN: Status post fall with severe right-sided intracranial hemorrhage, status post craniectomy and evacuation. Plan will be to continue her supportive care and work on placement as per the Day Team's plan. Job ID: [id number]
[2018-10-22] MEDS: Insulin Regular 300 UNITS/3 ML VIAL SC PRN ×6 (00:55→21:00)
[2018-10-22] MEDS: Acetaminophen 650 MG/20.3 ML UDCUP PO SCH ×4 (04:10→21:03)
[2018-10-22 05:21] LABS: #Basophils 0.1 thou/uL (0.0-0.2); #Eosinphils 0.5 thou/uL (0.0-0.7); #Lymphocytes 2.7 thou/uL (1.20-3.40); #Monocytes 1.1 thou/uL (0.11-0.59); #Neutrophils 8.9 thou/uL (1.40-6.50); %Basophils 0.4 % (0.0-1.0); %Eosinophils 3.5 % (0.0-10.0); %Lymphocytes 20.2 % (21.0-51.0); %Monocytes 8.5 % (0.0-10.0); %Neutrophils 67.3 % (42.0-75.0); Hemoglobin 10.9 g/dL (12.0-16.0); Mean Corpuscular HGB CONC 32.2 g/dL (32.0-36.0); Mean Corpuscular Hemoglobin 30.5 pg (27.0-31.0); Mean Corpuscular Volume 94.6 fL (78.0-98.0); Mean Platelet Volume 8.3 fL (7.4-10.4); Platelet Count 453 thou/uL (130-400); RBC Distribution Width 12.6 % (11.5-14.5); Red Blood Cell (RBC) Count 3.58 mill/uL (4.20-5.40); White Blood Cell (WBC) Count 13.2 thou/uL (4.8-10.8)
[2018-10-22] MEDS: cloNIDine 0.1 MG TAB PO SCH ×3 (05:21→17:13)
[2018-10-22 05:40] LABS: Anion Gap 12 mmol/L (10-20); BUN (Urea Nitrogen) 19 mg/dL (9.8-20.1); Calc. Creatinine Clearance 87 mL/min (70-130); Calcium 9.1 mg/dL (7.8-10.44); Carbon Dioxide 26 mmol/L (23-31); Chloride 105 mmol/L (98-107); Estimated GFR-MDRD Greater than 90; Glucose 220 mg/dL (83-110); Magnesium 1.8 mg/dL (1.6-2.6); Phosphorus 3.8 mg/dL (2.3-4.7); Potassium 3.8 mmol/L (3.5-5.1); Sodium 139 mmol/L (136-145)
--- NOTE | 2018-10-22 08:17 | RAD ---
EXAM: Single view of the chest HISTORY: Subdural hemorrhage COMPARISON: 10/17/2018 FINDINGS: Single view of the chest shows a normal sized cardiomediastinal silhouette. The tracheosto my is unchanged in position. Atherosclerotic calcifications are seen in the aorta. There is no evidence of consolidation, mass, or pleural effusion. Degenerative changes are seen in the spine. IMPRESSION: Stable exam
[2018-10-22] MEDS: Insulin Glargine 15 UNITS in Pre-Filled Syringe 1 EACH SC SCH (08:55)
[2018-10-22] MEDS: Ascorbic Acid 500 mg Chewable Tablet PO SCH ×2 (08:58→17:13)
[2018-10-22] MEDS: Calcium Carbonate + Vit D 250 MG TAB PO SCH (08:59)
[2018-10-22] MEDS: Amantadine HCl 100 mg Capsule PO SCH ×2 (08:59→21:04)
[2018-10-22] MEDS: Ferrous Sulfate 325 MG TAB PO SCH ×2 (08:59→17:13)
[2018-10-22] MEDS ORDERED: MEROPENEM 1 GM/50 ML 1 GM in Premix Bag 1 BAG IVPB SCH (09:00)
[2018-10-22] MEDS: Chlorhexidine Gluconate 15 ML UDCUP SSP SCH ×2 (09:00→21:04)
[2018-10-22] MEDS: Saccharomyces boulardii 250 MG CAP PO SCH (09:01)
[2018-10-22] MEDS: Famotidine 20 MG TAB PO SCH ×2 (09:01→21:03)
[2018-10-22] MEDS: Metamucil PACK PO SCH ×2 (09:01→21:05)
[2018-10-22] MEDS: Losartan 25 MG TAB PER TUBE SCH ×2 (09:01→21:04)
--- NOTE | 2018-10-22 11:26 | PRG ---
DATE OF SERVICE: 10/22/2018 SUBJECTIVE: Ms. Denise is a 78-year-old woman, who is post injury day #11 status post ground level fall. The patient sustained acute severe traumatic brain injury requiring right craniectomy and evacuation of large intracerebral hematoma. This morning, the patient is more alert. She follows commands with right upper and lower extremities. She remains with left-sided hemipareses; however, this has to be more spontaneous movement of the left side. Started tube feeds at goal and has been having multiple loose bowel movements. Urinary output has been adequate. OBJECTIVE: VITAL SIGNS: Today includes blood pressure 129/54, pulse 66, respiratory rate is 25, maximum temperature in last 24 hours is 99.7 degrees Fahrenheit, and oxygen saturation is 98% on trach collar, 30% FiO2. HEENT: Pupils are equal, round, and reactive to light bilaterally. HEART: Reveals regular rate and rhythm. No murmurs or gallops auscultated. LUNGS: Reveals bibasilar rhonchi. Breathing regular and unlabored. ABDOMEN: Soft, nontender, and nondistended. Bowel sounds in all 4 quadrants appear normoactive. EXTREMITIES: Reveal 2+ radial and pedal pulses bilaterally. No ankle edema is present. LABORATORY DATA: Laboratory findings today includes a CBC with 13,200 white blood cells, hemoglobin and hematocrit are 10.9 and 33.8 respectively. Platelet count is 453,000. Metabolic profile; sodium 139, potassium 3.8, chloride is 105, bicarb is 26, BUN 19, creatinine 0.61, glucose is 220, magnesium 1.8, and phosphorus 3.8. IMPRESSION: 1. Post injury day #11 status post ground level fall. 2. Acute severe traumatic brain injury with residual left hemiparesis. The patient is neurologically improving. 3. Acute hypokalemia. 4. Acute hypomagnesemia. PLAN: 1. Correct abnormal electrolytes. 2. Increase activity per Physical and Occupational Therapy. 3. Anticipate transfer to inpatient rehabilitation in the next few days. Job ID: [id number]
[2018-10-22] MEDS: Amlodipine 5 MG TAB PO SCH (21:03)
[2018-10-22] MEDS: Sulfameth/Trimethoprim SS 400-80MG TAB PO SCH (21:05)
[2018-10-22] MEDS: Simvastatin 20 MG TAB PO SCH (21:06)
--- NOTE | 2018-10-22 22:07 | PRG ---
DATE OF SERVICE: 10/22/2018 SUBJECTIVE: The patient remains in the IMCU. She is status post ground level fall when she sustained severe traumatic brain injury and subsequently underwent a right craniotomy and evacuation of a large intracerebral hematoma. The patient had no reported issues today, but was noted to have polymicrobial findings on her Gram stain from her respiratory cultures and was started on antibiotics that will be adjusted once the sensitivities come back. OBJECTIVE: VITAL SIGNS: Stable. The patient has been afebrile. GENERAL: The patient is resting comfortably in bed. MUSCULOSKELETAL: She will open her eyes to verbal stimuli and as with last night appears to move her bilateral lower extremities, the right greater than left and the upper extremities, right greater than left with gentle painful stimuli. This appears consistent with my exam last night. ASSESSMENT/PLAN: Continue supportive care as per the Day Team and await final placement decision. Job ID: [id number]
[2018-10-23] MEDS: cloNIDine 0.1 MG TAB PO SCH ×4 (00:52→16:59)
[2018-10-23] MEDS: Insulin Regular 300 UNITS/3 ML VIAL SC PRN ×4 (00:55→15:59)
[2018-10-23] MEDS: Acetaminophen 650 MG/20.3 ML UDCUP PO SCH ×4 (04:04→21:35)
[2018-10-23 05:55] LABS: Anion Gap 14 mmol/L (10-20); BUN (Urea Nitrogen) 14 mg/dL (9.8-20.1); Calc. Creatinine Clearance 90 mL/min (70-130); Calcium 8.9 mg/dL (7.8-10.44); Carbon Dioxide 22 mmol/L (23-31); Chloride 105 mmol/L (98-107); Estimated GFR-MDRD Greater than 90; Glucose 207 mg/dL (83-110); Magnesium 2.2 mg/dL (1.6-2.6); Phosphorus 3.5 mg/dL (2.3-4.7); Potassium 4.4 mmol/L (3.5-5.1); Sodium 137 mmol/L (136-145)
[2018-10-23] MEDS: Saccharomyces boulardii 250 MG CAP PO SCH (10:03)
[2018-10-23] MEDS: Calcium Carbonate + Vit D 250 MG TAB PO SCH (10:03)
[2018-10-23] MEDS: Sulfameth/Trimethoprim SS 400-80MG TAB PO SCH ×2 (10:03→21:56)
[2018-10-23] MEDS: Ascorbic Acid 500 mg Chewable Tablet PO SCH ×2 (10:04→16:00)
[2018-10-23] MEDS: Amantadine HCl 100 mg Capsule PO SCH ×2 (10:04→21:54)
[2018-10-23] MEDS: Losartan 25 MG TAB PER TUBE SCH ×2 (10:04→21:33)
[2018-10-23] MEDS: Famotidine 20 MG TAB PO SCH ×2 (10:04→21:33)
[2018-10-23] MEDS: Ferrous Sulfate 325 MG TAB PO SCH ×2 (10:04→16:00)
[2018-10-23] MEDS: Metamucil PACK PO SCH ×2 (10:05→21:56)
[2018-10-23] MEDS: Chlorhexidine Gluconate 15 ML UDCUP SSP SCH ×2 (10:06→21:54)
[2018-10-23] MEDS: Insulin Glargine 15 UNITS in Pre-Filled Syringe 1 EACH SC SCH (10:06)
--- NOTE | 2018-10-23 18:54 | PRG ---
DATE OF SERVICE: 10/23/2018 SUBJECTIVE: Ms. Denise is post injury #12 status post ground level fall sustaining severe acute traumatic brain injury requiring right craniectomy and evacuation of intracranial hematoma. The patient is more awake and interactive today. I visited with the patient with her and adult son at bedside. She remains with left hemiparesis. Pearson coma scale today is [id number]. She follows commands with right side. She has more spontaneous movements in the left upper greater than left lower extremities. She tolerates tube feeds at goal and she is having normal bowel and urinary function. OBJECTIVE: VITAL SIGNS: Today include blood pressure 117/50, pulse is 66, respiratory rate is 22, maximum temperature in last 24 hours is 98.8 degrees Fahrenheit, oxygen saturation 99% on 30% FiO2 by a trach collar. HEENT: Pupils are equal, round, and reactive to light. There is residual left periorbital swelling present. NECK: She has no jugular venous distention noted. HEART: Reveals regular rate and rhythm. No murmurs or gallops auscultated. LUNGS: Clear to auscultation bilaterally. Breathing, regular and nonlabored. ABDOMEN: Soft, nontender, nondistended. NEUROLOGIC: She remains with left hemiparesis, although overall her mental status is improving. PLAN: Increase activity per Physical and Occupational Therapy. Speech and Language pathologist to evaluate the patient for possible oral intake. Anticipate transfer to inpatient rehabilitation over the next coming days. Job ID: [id number]
[2018-10-23] MEDS: Amlodipine 5 MG TAB PO SCH (21:31)
[2018-10-23] MEDS: Simvastatin 20 MG TAB PO SCH (21:33)
--- NOTE | 2018-10-23 22:18 | RAD ---
AP pelvis one view HISTORY: Fall. Pelvic pain. FINDINGS: Sacral alae and pelvic rings are intact. Degenerative changes of the hips. Postoperative ch anges lower lumbar spine. Hemostasis clips overlie the left pelvis. No displaced fractures are apparent. IMPRESSION: No acute osseous abnormalities are demonstrated.
--- NOTE | 2018-10-23 22:19 | RAD ---
Right hip 2 views HISTORY: Fall. Right hip injury. FINDINGS: Mild joint space narrowing and osteophytosis. Femoral head contour is maintained. No acute fracture or dislocation. IMPRESSION: Mild osteoarthritic changes right hip.
--- NOTE | 2018-10-24 00:04 | PRG ---
DATE OF SERVICE: SUBJECTIVE: The patient remains in the [facility]. She is hospital day 12 status post ground-level fall, in which she sustained a severe traumatic brain injury, requiring her to undergo a right craniotomy and evacuation of an intracranial hematoma. During the day, the patient reportedly had no issues. She has been slowly progressing with physical and occupational therapy. OBJECTIVE: VITAL SIGNS: Stable, afebrile. GENERAL: The patient is resting comfortably in bed. [place] Coma Scale remains [id number] tonight. EXTREMITIES: Right upper extremity, she follows commands and has a good lathe spotter strength. Her left upper extremity still has pretty much neglect. The right lower extremity had muscle twitch with painful stimuli, as the left lower extremity had a brisk response. Otherwise, her exam is unchanged. ASSESSMENT/PLAN: 1. Status post ground-level fall. 2. Status post right craniotomy and evacuation of intracranial hematoma. Plan will be to continue her supportive care, physical and occupational therapy, and all else as per the Day Team. Job ID: [id number]
[2018-10-24] MEDS: cloNIDine 0.1 MG TAB PO SCH ×4 (00:20→18:13)
[2018-10-24] MEDS: Insulin Regular 300 UNITS/3 ML VIAL SC PRN ×4 (00:45→18:49)
[2018-10-24] MEDS: Acetaminophen 650 MG/20.3 ML UDCUP PO SCH ×4 (03:57→22:18)
[2018-10-24] MEDS: Chlorhexidine Gluconate 15 ML UDCUP SSP SCH ×2 (09:44→20:04)
[2018-10-24] MEDS: Amantadine HCl 100 mg Capsule PO SCH ×2 (09:45→20:02)
[2018-10-24] MEDS: Saccharomyces boulardii 250 MG CAP PO SCH (09:45)
[2018-10-24] MEDS: Ferrous Sulfate 325 MG TAB PO SCH ×2 (09:45→18:13)
[2018-10-24] MEDS: Ascorbic Acid 500 mg Chewable Tablet PO SCH ×2 (09:45→18:14)
[2018-10-24] MEDS: Sulfameth/Trimethoprim SS 400-80MG TAB PO SCH ×2 (09:45→20:02)
[2018-10-24] MEDS: Metamucil PACK PO SCH ×2 (09:46→20:02)
[2018-10-24] MEDS: Calcium Carbonate + Vit D 250 MG TAB PO SCH (09:46)
[2018-10-24] MEDS: Famotidine 20 MG TAB PO SCH ×2 (09:46→20:02)
[2018-10-24] MEDS: Insulin Glargine 15 UNITS in Pre-Filled Syringe 1 EACH SC SCH (09:47)
[2018-10-24] MEDS: Losartan 25 MG TAB PER TUBE SCH ×2 (09:56→20:03)
--- NOTE | 2018-10-24 17:48 | PRG ---
DATE OF SERVICE: 10/24/2018 SUBJECTIVE: Ms. Denise is a 78-year-old woman, who is post injury day #13 status post ground level fall. The patient sustained acute severe traumatic brain injury, requiring emergent craniectomy and evacuation of large right-sided intracerebral hematoma. She has residual left hemiparesis. She is more alert today. She is conversant. [place] Coma Scale is E3-4 V4 M6. She is tolerating tube feeds at goal, having bowel movements and adequate urinary function. OBJECTIVE: VITAL SIGNS: Today include blood pressure of 135/52, pulse is 69, respiratory rate is 20, temperature is 97.4 degrees Fahrenheit, maximum temperature in last 24 hours is 97.8 degrees Fahrenheit. Oxygen saturation is 99% on trach collar at 30% FiO2. HEENT: Pupils are equal, round, reactive to light and accommodation. She has no jugular venous distention noted. HEART: Reveals regular rate and rhythm. LUNGS: Clear to auscultation bilaterally. Breathing, regular and nonlabored. Tracheostomy site is intact and clean. ABDOMEN: Soft, nontender, and nondistended. Gastrostomy site is clean and dry. EXTREMITIES: Reveal 2+ radial and pedal pulses bilaterally. No ankle edema is present. MUSCULOSKELETAL: Reveals 5/5 right upper and right lower extremities. Left upper extremity is 2/5, left lower extremity 2/5. IMPRESSIONS: 1. Post injury day #13, status post ground level fall. 2. Acute severe traumatic brain injury with residual left hemiparesis. The patient is functional left hemiplegic. PLAN: 1. Increase activity per Physical and Occupational Therapy. 2. Anticipate transfer to inpatient rehabilitation in the next few days. 3. We will ask Speech and Language Pathology to work with the patient with regard to speech, cognition, and swallow function. 4. Above findings and plan discussed with the patient and her younger son, Lucius at bedside. 5. Lucius indicated understanding of information provided. I have answered his questions. Job ID: [id number]
[2018-10-24] MEDS: Simvastatin 20 MG TAB PO SCH (20:02)
[2018-10-24] MEDS: Amlodipine 5 MG TAB PO SCH (20:03)
--- NOTE | 2018-10-25 00:15 | PRG ---
DATE OF SERVICE: 10/24/2018 SUBJECTIVE: The patient remains in the IMCU. She is status post a ground level fall, in which she sustained a severe traumatic brain injury, requiring her to undergo a right craniotomy with evacuation of intracranial hematoma. Nurses report that there has been no issues during the day. Nothing is reported by the Day Team. The patient continues to work with Physical and Occupational Therapy. She is tolerating her tube feeds. OBJECTIVE: VITAL SIGNS: Stable. The patient remains afebrile. Her physical exam is unchanged. ASSESSMENT/PLAN: 1. Status post ground level fall. 2. Status post right craniotomy and evacuation of intracranial hematoma. Plan will be to continue supportive care, Physical and Occupational Therapy and we will discuss with the Day Team if she can be moved to a surgical floor in the near future. Job ID: [id number]
[2018-10-25] MEDS: cloNIDine 0.1 MG TAB PO SCH ×4 (00:19→17:47)
[2018-10-25] MEDS: Insulin Regular 300 UNITS/3 ML VIAL SC PRN ×4 (00:20→21:30)
[2018-10-25] MEDS: Acetaminophen 650 MG/20.3 ML UDCUP PO SCH ×4 (05:08→21:17)
[2018-10-25] MEDS: Losartan 25 MG TAB PER TUBE SCH ×2 (08:47→21:15)
[2018-10-25] MEDS: Ascorbic Acid 500 mg Chewable Tablet PO SCH ×2 (08:47→16:32)
[2018-10-25] MEDS: Saccharomyces boulardii 250 MG CAP PO SCH (08:47)
[2018-10-25] MEDS: Famotidine 20 MG TAB PO SCH ×2 (08:47→21:16)
[2018-10-25] MEDS: Ferrous Sulfate 325 MG TAB PO SCH ×2 (08:48→16:32)
[2018-10-25] MEDS: Amantadine HCl 100 mg Capsule PO SCH ×2 (08:48→21:19)
[2018-10-25] MEDS: Calcium Carbonate + Vit D 250 MG TAB PO SCH (08:49)
[2018-10-25] MEDS: Metamucil PACK PO SCH ×2 (08:50→21:16)
[2018-10-25] MEDS: Insulin Glargine 15 UNITS in Pre-Filled Syringe 1 EACH SC SCH (08:50)
[2018-10-25] MEDS: Sulfameth/Trimethoprim SS 400-80MG TAB PO SCH ×2 (08:51→21:17)
[2018-10-25] MEDS: Chlorhexidine Gluconate 15 ML UDCUP SSP SCH ×2 (09:59→21:16)
[2018-10-25] MEDS: Simvastatin 20 MG TAB PO SCH (21:15)
[2018-10-25] MEDS: Amlodipine 5 MG TAB PO SCH (21:16)
[2018-10-26] MEDS: cloNIDine 0.1 MG TAB PO SCH ×5 (00:34→23:56)
[2018-10-26] MEDS: Insulin Regular 300 UNITS/3 ML VIAL SC PRN ×7 (00:45→23:56)
--- NOTE | 2018-10-26 03:36 | PRG ---
DATE OF SERVICE: 10/26/2018 SUBJECTIVE: The patient is currently on the surgical floor. She was moved up today from the [facility]. During the transition, she was unable to work with Physical and Occupational Therapy. Otherwise, the patient had no reported issues today. She is tolerating her tube feeds. Her bowels are functioning and she reports her pain is controlled. OBJECTIVE: VITAL SIGNS: Stable. The patient is afebrile. GENERAL: The patient appears in no acute distress. NEUROLOGICAL: By report, the patient's neurologic status has not changed. She still has significant left-sided deficit. She was asleep at the time of my exam and I did not awaken her. ASSESSMENT AND PLAN: 1. Status post ground level fall. 2. Status post right craniotomy and evacuation of intracranial hematoma. PLAN: Plan will be to continue supportive care, physical and occupational therapy and await final placement decision. Job ID: [id number]
[2018-10-26] MEDS: Acetaminophen 650 MG/20.3 ML UDCUP PO SCH ×4 (04:05→21:06)
[2018-10-26 05:59] LABS: Anion Gap 15 mmol/L (10-20); BUN (Urea Nitrogen) 23 mg/dL (9.8-20.1); Calc. Creatinine Clearance 79 mL/min (70-130); Calcium 9.8 mg/dL (7.8-10.44); Carbon Dioxide 26 mmol/L (23-31); Chloride 103 mmol/L (98-107); Estimated GFR-MDRD 85; Glucose 196 mg/dL (83-110); Phosphorus 4.2 mg/dL (2.3-4.7); Potassium 4.5 mmol/L (3.5-5.1); Sodium 139 mmol/L (136-145)
[2018-10-26] MEDS: Calcium Carbonate + Vit D 250 MG TAB PO SCH (08:46)
[2018-10-26] MEDS: Sulfameth/Trimethoprim SS 400-80MG TAB PO SCH ×2 (08:46→20:25)
[2018-10-26] MEDS: Amantadine HCl 100 mg Capsule PO SCH ×2 (08:46→20:24)
[2018-10-26] MEDS: Saccharomyces boulardii 250 MG CAP PO SCH (08:46)
[2018-10-26] MEDS: Metamucil PACK PO SCH ×2 (08:46→20:29)
[2018-10-26] MEDS: Ferrous Sulfate 325 MG TAB PO SCH ×2 (08:47→15:38)
[2018-10-26] MEDS: Losartan 25 MG TAB PER TUBE SCH ×2 (08:47→20:24)
[2018-10-26] MEDS: Famotidine 20 MG TAB PO SCH ×2 (08:47→20:24)
[2018-10-26] MEDS: Ascorbic Acid 500 mg Chewable Tablet PO SCH ×2 (08:47→15:38)
[2018-10-26] MEDS: Insulin Glargine 15 UNITS in Pre-Filled Syringe 1 EACH SC SCH (08:48)
[2018-10-26] MEDS: Chlorhexidine Gluconate 15 ML UDCUP SSP SCH ×2 (09:22→20:25)
[2018-10-26 12:20] VITALS: BMI 27.8
--- NOTE | 2018-10-26 15:44 | PRG ---
DATE OF SERVICE: 10/26/2018 SUBJECTIVE: This is a 78-year-old woman who is post injury day #15 status post ground level fall. The patient sustained acute severe traumatic brain injury, require emergent craniectomy and evacuation of large right-sided intracerebral hematoma with residual left hemiparesis. No overnight events. She is doing better today. She is more alert and participated ongoing conversation. She is tolerated with tube feeding and she is having regular bowel movements. Her urinary output is adequate. She developed no fever or shortness of breath. OBJECTIVE: GENERAL: The patient is lying down in bed, no acute distress. She is alert and oriented x3. Her GCS is E3, V4, and M6. VITAL SIGNS: Temperature 98, heart rate 72, respiratory rate 20, O2 sat 94% on room air, and blood pressure 129/75. LUNGS: Clear bilaterally. HEART: Regular rate and rhythm. ABDOMEN: Soft and nondistended. Normal bowel sounds. EXTREMITIES: R side neurovascular intact, L side paraplegia NEUROLOGIC: Left-sided paralysis , neglect IMPRESSION: 1. Post injury day #15, status post ground level fall. 2. Acute severe traumatic brain injury with residual left hemiparesis. PLAN: Continue activity. Participate physical activity with PT/OT. Continue to work with Speech Therapy for cognition and swallow function. Dr Aviles said patient would be better to have placement somewhere else to gain some strength before she can go to rehab. Anjali is working for her to go to LTAC Job ID: [id number] [facility]
[2018-10-26] MEDS: Amlodipine 5 MG TAB PO SCH (20:24)
[2018-10-26] MEDS: Simvastatin 20 MG TAB PO SCH (20:24)
--- NOTE | 2018-10-27 01:07 | PRG ---
DATE OF SERVICE: 10/27/2018 SUBJECTIVE: The patient is currently on the surgical floor. She is hospital day #15, status post ground level fall in which she sustained severe right-sided traumatic brain injury. She has undergone right craniotomy and evacuation of large right-sided intercerebral hematoma. The patient is noted to have residual left-sided hemiparesis. She has been waiting for placement decision today. She was evaluated by rehab and PM&R Physician felt that she was not ready for rehab and would likely benefit at a skilled facility or LTAC. Otherwise, the patient remains stable. OBJECTIVE: VITAL SIGNS: Stable. The patient is afebrile. Her pain is controlled. She is tolerating tube feeds and her bowel function is present. GENERAL: The patient is resting comfortably in bed. Appears in no distress. Her exam is essentially unchanged. ASSESSMENT: 1. Status post ground level fall, hospital day #15. 2. Status post right craniotomy with evacuation of hematoma. 3. Acute severe traumatic brain injury with residual left hemiparesis. PLAN: Plan will be to continue supportive therapy. Encourage physical and occupational therapy, speech therapy, and await placement decision. Job ID: [id number]
[2018-10-27] MEDS: Acetaminophen 650 MG/20.3 ML UDCUP PO SCH ×4 (03:00→21:35)
[2018-10-27] MEDS: Insulin Regular 300 UNITS/3 ML VIAL SC PRN ×4 (03:59→21:36)
[2018-10-27] MEDS: cloNIDine 0.1 MG TAB PO SCH ×3 (04:46→18:31)
[2018-10-27] MEDS: Losartan 25 MG TAB PER TUBE SCH ×2 (08:43→21:35)
[2018-10-27] MEDS: Famotidine 20 MG TAB PO SCH ×2 (08:43→21:35)
[2018-10-27] MEDS: Chlorhexidine Gluconate 15 ML UDCUP SSP SCH ×2 (08:43→21:35)
[2018-10-27] MEDS: Amantadine HCl 100 mg Capsule PO SCH ×2 (08:43→21:35)
[2018-10-27] MEDS: Metamucil PACK PO SCH ×2 (08:43→21:36)
[2018-10-27] MEDS: Insulin Glargine 15 UNITS in Pre-Filled Syringe 1 EACH SC SCH (08:44)
[2018-10-27] MEDS: Sulfameth/Trimethoprim SS 400-80MG TAB PO SCH ×2 (08:44→21:35)
[2018-10-27] MEDS: Saccharomyces boulardii 250 MG CAP PO SCH (08:44)
[2018-10-27] MEDS: Ascorbic Acid 500 mg Chewable Tablet PO SCH ×2 (08:44→16:43)
[2018-10-27] MEDS: Calcium Carbonate + Vit D 250 MG TAB PO SCH (08:44)
[2018-10-27] MEDS: Ferrous Sulfate 325 MG TAB PO SCH ×2 (08:44→16:43)
--- NOTE | 2018-10-27 15:43 | PRG ---
DATE OF SERVICE: 10/27/2018 SUBJECTIVE: The patient is currently hospital day #16, status post ground level fall, in which she sustained severe right-sided traumatic brain injury. She has undergone right craniotomy and evacuation of large right-sided intracerebral hematoma. She has been noted to have left-sided hemiparesis. At this time, we are awaiting on discharge to rehab facility to facilitate a proper PT/OT. OBJECTIVE: VITAL SIGNS: Temperature 98.4, pulse 75, respirations 22, oxygen saturation 96% on room air, blood pressure 129/64. GENERAL: The patient is doing well, sitting on the side of bed with PT/OT. She is following commands well. She is alert and oriented x3. HEART: Regular rate and rhythm. RESPIRATORY/LUNGS: Clear to auscultation bilaterally. ABDOMEN: Soft, nontender, nondistended. ASSESSMENT: 1. Status post ground level fall from hospital day #16. 2. Status post right craniotomy with evacuation of intracerebral hematoma. 3. Acute severe traumatic brain injury with residual left hemiparesis. PLAN: Continue supportive care. Continue with PT/OT at this time. Awaiting placement. Both findings and plan have been discussed with the patient and Dr. Morgan at bedside. Job ID: [id number] [facility]
[2018-10-27] MEDS: Amlodipine 5 MG TAB PO SCH (21:34)
[2018-10-27] MEDS: Simvastatin 20 MG TAB PO SCH (21:34)
--- NOTE | 2018-10-28 00:04 | PRG ---
DATE OF SERVICE: 10/27/2018 SUBJECTIVE: The patient is currently hospital day #16, status post ground level fall in which the patient sustained severe right-sided traumatic brain injury. The patient underwent right craniotomy and evacuation of large right-sided intracerebral hematoma. The patient is noted to have residual left-sided hemiparesis. The patient is currently resting comfortably, with trach collar in place. OBJECTIVE: VITAL SIGNS: Stable. The patient remains afebrile. GENERAL: The patient is resting comfortably in bed. Appears in no distress. ASSESSMENT: 1. Status post ground level fall, hospital day #16. 2. Status post right craniotomy with evacuation of hematoma. 3. Acute severe traumatic brain injury with residual left hemiparesis. PLAN: Continue supportive therapy. Continue to encourage physical and occupational therapies. Continue speech therapy for cognition. Job ID: [id number]
[2018-10-28] MEDS: Insulin Regular 300 UNITS/3 ML VIAL SC PRN ×6 (00:26→21:36)
[2018-10-28] MEDS: cloNIDine 0.1 MG TAB PO SCH ×4 (00:27→18:16)
[2018-10-28] MEDS: Acetaminophen 650 MG/20.3 ML UDCUP PO SCH ×4 (03:39→21:16)
[2018-10-28] MEDS: Chlorhexidine Gluconate 15 ML UDCUP SSP SCH ×2 (08:53→21:14)
[2018-10-28] MEDS: Saccharomyces boulardii 250 MG CAP PO SCH (08:53)
[2018-10-28] MEDS: Calcium Carbonate + Vit D 250 MG TAB PO SCH (08:53)
[2018-10-28] MEDS: Ascorbic Acid 500 mg Chewable Tablet PO SCH ×2 (08:53→16:44)
[2018-10-28] MEDS: Losartan 25 MG TAB PER TUBE SCH ×2 (08:53→21:15)
[2018-10-28] MEDS: Sulfameth/Trimethoprim SS 400-80MG TAB PO SCH ×2 (08:53→21:15)
[2018-10-28] MEDS: Amantadine HCl 100 mg Capsule PO SCH ×2 (08:53→21:15)
[2018-10-28] MEDS: Famotidine 20 MG TAB PO SCH ×2 (08:54→21:14)
[2018-10-28] MEDS: Ferrous Sulfate 325 MG TAB PO SCH ×2 (08:54→16:44)
[2018-10-28] MEDS: Insulin Glargine 15 UNITS in Pre-Filled Syringe 1 EACH SC SCH (08:54)
[2018-10-28] MEDS: Metamucil PACK PO SCH ×3 (10:27→21:15)
[2018-10-28] MEDS: Loperamide HCl 2 MG CAP PO SCH ×3 (12:46→21:15)
--- NOTE | 2018-10-28 14:01 | PRG ---
DATE OF SERVICE: 10/28/2018 SUBJECTIVE: The patient is currently hospital day #17, status post ground level fall, in which she sustained severe right-sided traumatic brain injury with left-sided hemiparesis. She underwent right craniotomy and evacuation of a right-sided intracerebral hematoma. At this time, she continues to improve. She remains alert, awake, and able to understand commands. OBJECTIVE: VITAL SIGNS: Temperature 97.7, pulse 75, respirations 22, oxygen saturations 97% on room air, blood pressure 131/70. GENERAL: The patient is doing well, sitting in the bed. She is alert and oriented x3. She will follow commands. She was able to swallow an ice cube today. HEART: Regular rate and rhythm. RESPIRATORY/LUNGS: Clear to auscultation bilaterally. ABDOMEN: Soft, nontender, nondistended. ASSESSMENT: 1. Status post ground fall, hospital day #17. 2. Status post right craniotomy with evacuation of intracerebral hematoma. 3. Acute severe traumatic brain injury and residual left hemiparesis. PLAN: We will continue supportive care at this time. We will encourage PT/OT. She continues to improve with her left-sided hemiparesis and swallowing capability. We discontinued the tracheotomy at this time due to her GCS of 14 and protecting her airway. Her vitals remained stable with the tracheostomy removed. We are now just awaiting placement. Findings and plan to have been discussed with the patient and Dr. Morgan at bedside. He understands the plan. Job ID: [id number] [facility]
[2018-10-28] MEDS: Simvastatin 20 MG TAB PO SCH (21:15)
[2018-10-28] MEDS: Amlodipine 5 MG TAB PO SCH (21:15)
[2018-10-29] MEDS: cloNIDine 0.1 MG TAB PO SCH ×3 (00:16→12:57)
[2018-10-29] MEDS: Loperamide HCl 2 MG CAP PO SCH (00:23)
[2018-10-29] MEDS: Insulin Regular 300 UNITS/3 ML VIAL SC PRN ×5 (00:24→16:14)
--- NOTE | 2018-10-29 00:29 | PRG ---
DATE OF SERVICE: 10/28/2018 SUBJECTIVE: The patient is currently hospital day #17, status post ground level fall in which she sustained a severe right-sided traumatic brain injury with left-sided hemiparesis. The patient is currently awake, alert, in attempts to communicate. OBJECTIVE: VITAL SIGNS: Stable. The patient remains afebrile. GENERAL: The patient is awake, alert, sitting up in bed. The patient follows commands. Bandage over tracheostomy site is clean dry and intact. RESPIRATORY: Equal bilateral, no respiratory distress. ASSESSMENT: 1. Status post ground level fall. 2. Status post right craniotomy with evacuation of intracerebral hematoma. 3. Acute severe traumatic brain injury and residual left hemiparesis. PLAN: Continue supportive care at this time. Encourage physical and occupational therapy. Pending placement. Job ID: [id number] [facility]
[2018-10-29] MEDS: Acetaminophen 650 MG/20.3 ML UDCUP PO SCH ×3 (04:31→16:28)
[2018-10-29] MEDS: Calcium Carbonate + Vit D 250 MG TAB PO SCH (08:55)
[2018-10-29] MEDS: Metamucil PACK PO SCH ×2 (08:55→16:32)
[2018-10-29] MEDS: Losartan 25 MG TAB PER TUBE SCH (08:55)
[2018-10-29] MEDS: Famotidine 20 MG TAB PO SCH (08:55)
[2018-10-29] MEDS: Amantadine HCl 100 mg Capsule PO SCH (08:55)
[2018-10-29] MEDS: Chlorhexidine Gluconate 15 ML UDCUP SSP SCH (08:55)
[2018-10-29] MEDS: Saccharomyces boulardii 250 MG CAP PO SCH (08:55)
[2018-10-29] MEDS: Ascorbic Acid 500 mg Chewable Tablet PO SCH (08:55)
[2018-10-29] MEDS: Ferrous Sulfate 325 MG TAB PO SCH (08:55)
[2018-10-29] MEDS: Insulin Glargine 15 UNITS in Pre-Filled Syringe 1 EACH SC SCH (08:56)
[2018-10-29] MEDS: Sulfameth/Trimethoprim SS 400-80MG TAB PO SCH (08:56)
[2018-10-29 15:59] VITALS: BP 123/68; TEMP 98
--- NOTE | 2018-10-29 21:54 | DIS ---
DATE OF ADMISSION: 10/12/2018 DATE OF DISCHARGE: 10/29/2018 RESIDENT: Claude Medina DO DISCHARGING PHYSICIAN: Dr. Dani Morgan. CONSULTS: 1. Cardiovascular, Dr. Faustino Oconnell. 2. Oral surgery, Dr. Grayson Muro. 3. Neurosurgery, Dr. Harman Samson. PRIMARY DIAGNOSES: 1. Status post ground level fall, hospital stay of 17 days. 2. Status post craniotomy with evacuation of intracerebral hematoma. 3. Acute severe traumatic brain injury and residual left hemiparesis. SECONDARY DIAGNOSES: 1. History of diabetes. 2. Hypertension. 3. Diverticulosis. 4. Bladder suspension. DISCHARGE MEDICATIONS: Refer to discharge plan. HISTORY OF PRESENT ILLNESS AND HOSPITAL COURSE: The patient is a 78-year-old female, who suffered a fall on her face while she was walking with loss of consciousness for about [address] scan showed bleeding of the right frontal lobe. She has experienced loss of motor function, strength on her left side through the hospital stay. She also lost sensation. Her GCS remained intact at 14. Upon repeat CT scans, it showed active bleeding, so Neurosurgery was consulted. The patient was intubated, then she was taken to the OR for exploration of her hematoma. Brain was completely depressed at that time. The bleeding on the surface was controlled. The scope was replaced with titanium microplates and screws. On 10/14/2018, she had a tracheostomy tube placed and percutaneous endoscopic gastrostomy tube placed as well. She had been on mechanical ventilator support with a Jose coma scale of [id number]. The procedures were performed to take the patient off mechanical ventilator support. PT/OT, Speech, and Language Pathology were brought on board to help the patient regain function as well as . She remained without further complications and began transferred from ICU to the surgical floor. She stayed here until family was able to decide on placement for her, which is going to be in [place], [place]. She is going to have family down there to help support her and her seem to be able to make the trip as well. Of note, the tracheostomy was removed on 2018 due to GCS of 14 and ability to protect her airways. She handled the removal very well and had no complications. On discharge today, she was able to hold conversations and was alert and oriented x3. She was able to swallow decently well. She remains with left-sided hemiplegia. She will require extensive rehab to assist in her care. DISPOSITION: Stable. DISCHARGE INSTRUCTIONS: 1. Location, [facility]. 2. Diet, TPN. 3. Activity, bed bound due to left-sided hemiparesis. 4. Followup, the patient is going to rehab at this time. Pt evaluated and plan discussed with Dr. Morgan at bedside. Job ID: [id number] [facility]
== END 2018-10-29 16:50 | DRG 3 ==
LOC: ERS 22:54 → SDC/OP 10-12 02:42 → CCU 10-12 04:05 → IMCU/EMU 10-20 23:30 → SURG A 10-25 06:50
PROVIDERS: ADMIT Surgery; ATTEND Surgery
PROC: 00C00ZZ Extirpation of Matter from Brain, Open Approach (ICD-10-PCS; 2018-10-12)
PROC: 5A1945Z Respiratory Ventilation, 24-96 Consecutive Hours (ICD-10-PCS; 2018-10-12)
PROC: 0BH17EZ Insertion of Endotracheal Airway into Trachea, Via Natural or Artificial Opening (ICD-10-PCS; 2018-10-12)
PROC: 0B113F4 Bypass Trachea to Cutaneous with Tracheostomy Device, Percutaneous Approach (ICD-10-PCS; principal; 2018-10-14)
PROC: 0DH63UZ Insertion of Feeding Device into Stomach, Percutaneous Approach (ICD-10-PCS; 2018-10-14)
PROC: 3E0436Z Introduction of Nutritional Substance into Central Vein, Percutaneous Approach (ICD-10-PCS; 2018-10-14)
PROC: 06H03DZ Insertion of Intraluminal Device into Inferior Vena Cava, Percutaneous Approach (ICD-10-PCS; 2018-10-15)
PROC: 06H03DZ Insertion of Intraluminal Device into Inferior Vena Cava, Percutaneous Approach (ICD-10-PCS; 2018-10-15)
DX: S06.341A Traumatic hemorrhage of right cerebrum with loss of consciousness of 30 minutes or less, initial encounter (principal); J96.00 Acute respiratory failure, unspecified whether with hypoxia or hypercapnia; J69.0 Pneumonitis due to inhalation of food and vomit; G81.94 Hemiplegia, unspecified affecting left nondominant side; S02.82XA Fracture of other specified skull and facial bones, left side, initial encounter for closed fracture; S02.40DA Maxillary fracture, left side, initial encounter for closed fracture; Z96.651 Presence of right artificial knee joint; I10 Essential (primary) hypertension; W18.39XA Other fall on same level, initial encounter; K57.90 Diverticulosis of intestine, part unspecified, without perforation or abscess without bleeding; E87.6 Hypokalemia; E83.39 Other disorders of phosphorus metabolism; E83.42 Hypomagnesemia; E11.65 Type 2 diabetes mellitus with hyperglycemia; Y93.89 Activity, other specified; Y92.89 Other specified places as the place of occurrence of the external cause; Z90.710 Acquired absence of both cervix and uterus; Z88.0 Allergy status to penicillin; Z79.4 Long term (current) use of insulin
CPT/HCPCS: 31500; 36415; 36416; 37191; 51702; 70450; 70486; 70544; 70549; 70553; 71045; 72125; 72170; 76942; 80048; 80053; 80306; 81003; 81015; 82533; 82805; 83735; 84100; 84484; 85007; 85025; 85027; 85610; 85730; 86850; 86900; 86901; 87070; 87205; 87324; 87449; 89220; 93005; 93010; 94002; 94003; 94640; 96365; 96367; 96375; 96376; C1713; C1769; G0390; J0131; J0360; J0696; J1644; J1815; J1956; J2001; J2185; J2250; J2270; J2370; J2704; J3010; J3475; J3490; J7050; J7070; J7620; Q9967; S0028